=== PATIENT | male | born 1950 | race Caucasian/White ===

== ENCOUNTER 2020-05-27 08:57 | Outpatient (CLI) | payer OTHER, SELFPAY ==
--- NOTE | ~2020-05-27 | US_ITS ---
EXAMINATION: US venous doppler LE RT DATE: 05/27/2020 09:41 INDICATION: Right lower limb pain TECHNIQUE: Guillen scale images without and with compression and Doppler images of the right lower extre mity veins were obtained. COMPARISON: None FINDINGS: The right common femoral vein, profunda femoral vein, femoral vein, popliteal vein, peronea l trunk, posterior tibial veins, and greater saphenous vein are patent. IMPRESSION: 1. Patent right lower extremity veins. No evidence of deep venous thrombosis. Reviewed, dictated and finalized at location B.
== END 2020-05-27 08:58 | disposition home or self-care (01) ==
LOC: ANHIMG 09:04
PROVIDERS: PCP Physician Assistant; Visit Provider Physician Assistant
DX: M79.661 Pain in right lower leg (principal)
CPT/HCPCS: 93971

== ENCOUNTER → 2020-10-07 14:34 | Outpatient (CLI) | payer OTHER, SELFPAY ==
--- NOTE | ~2020-10-07 | XR_ITS ---
EXAMINATION: XR femur RT min 2V DATE: 10/07/2020 14:58 INDICATION: Sciatica to the right lower limb. TECHNIQUE: Overlapping proximal and distal, AP and lateral views of the right femur were obtained. COMPARISON: None FINDINGS: No acute fracture. Old healed mid diaphyseal fracture of the right femur with antegrade intramedullar y cielo fixation. Alignment remains essentially anatomic. Mild to moderate osteoarthritis at the right hip. Prominent heterotopic ossification at the tip of the greater trochanter. IMPRESSION: 1. Internally fixed old healed mid right femoral fracture in essentially anatomic alignment. No acute osseous abnormality. 2. Mild to moderate right hip osteoarthritis. Reviewed, dictated and finalized at location B. IMPRESSION: 1. Internally fixed old healed mid right femoral fracture in essentially anatom ic alignment. No acute osseous abnormality. 2. Mild to moderate right hip osteoarthritis.
--- NOTE | ~2020-10-07 | XR_ITS ---
XR lumbar spine 2-3V DATE: 10/07/2020 14:57 INDICATION: Right sciatica TECHNIQUE: AP, lateral, coned lateral lumbosacral views COMPARISON: None FINDINGS: There is osteopenia. There is degenerative spurring of the thoracic and lumbar spine. There is moderate degenerative disc disease of the lumbar spine, sparing L5-S1. No fracture or bone destruction or spondylolisthesis. The lumbar pedicles are intact. The sacroiliac joints are intact. Bilateral hip osteoarthritis. 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
== END ==
PROVIDERS: PCP Physician Assistant; Visit Provider Physician Assistant
DX: M54.31 Sciatica, right side (principal); M16.0 Bilateral primary osteoarthritis of hip; M51.36 Other intervertebral disc degeneration, lumbar region
CPT/HCPCS: 72100; 73552

== ENCOUNTER 2024-07-23 09:24 | Outpatient (CLI) | payer OTHER, SELFPAY ==
--- NOTE | 2024-07-23 | ECHO_ITS ---
Patient Info Name: Cody Johnston Age: 73 years : 1950 Gender: Male Ht: 64 in Wt: 195 lbs BSA: 2.03 m2 HR: 55 bpm BP: 158 / 95 mmHg Technical Quality: Good Exam Date: 07/23/2024 9:43 AM Patient Status: O Admit Date: 07/23/2024 Exam Type: CA echo doppler color flow Complete two-dimensional, color flow and Doppler transthoracic echocardiogram is performed. Technical Support Director: Kathy Mejía Attending Provider: Susana Krueger Summary 1. Left ventricular chamber dimension is normal. 2. Left ventricular systolic function is normal, estimated at 65-70. 3. There is mildly increased left ventricular wall thickness. 4. The left ventricular diastolic function is grade I diastolic dysfunction. 5. Right ventricular systolic function is normal. 6. No significant valvular disease. Left Ventricle Left ventricular chamber dimension is normal. Left ventricular systolic function is normal, estimated at 65-70. There is mildly increased left ventricular wall thickness. The left ventricular diastolic function is grade I diastolic dysfunction. Right Ventricle Right ventricular chamber dimension is normal. Right ventricular systolic function is normal. Left Atria Left atrial chamber dimension is normal. Right Atria Right atrial chamber dimension is normal. Atrial Septum Intact interatrial septum visualized by color flow imaging. Aortic Valve The aortic valve is trileaflet. There is no aortic valve stenosis. There is trace aortic valve regurgitation. Pulmonic Valve The pulmonic valve is not well visualized. There is trace pulmonic regurgitation. Mitral Valve There is trace mitral valve regurgitation. Tricuspid Valve There is trace tricuspid valve regurgitation. Pericardium/Pleural The pericardium appears epicardial fat pad. There is no pericardial effusion. Inferior Vena Cava Normal inferior vena cava with >50% collapse upon inspiration consistent with normal right atrial pressure, 3 mmHg. Aorta The aortic root size at the sinus of Valsalva is normal. Left Ventricular Outflow Tract Name Value Normal LVOT 2D LVOT Diameter 2.0 cm LVOT Doppler LVOT Peak Velocity 143 cm/s LVOT Peak Gradient 8 mmHg LVOT Mean Gradient 4 mmHg LVOT VTI 31 cm LVOT VTI/AV VTI Ratio 0.9 LVOT Stroke Volume 98 ml LVOT CO 5.6 l/min LVOT CI 2.8 l/min/m2 Pulmonic Valve Name Value Normal RVOT Doppler RVOT Peak Velocity 83 cm/s RVOT Peak Gradient 2 mmHg PV Doppler PV Peak Velocity 108 cm/s PV Peak Gradient 4 mmHg PV Mean Gradient 2 mmHg Mitral Valve Name Value Normal MV Diastolic Function MV E Peak Velocity 91 cm/s MV A Peak Velocity 89 cm/s MV E/A 1.0 MV Decel Time (PW) 233 ms MV Annular TDI MV E/e' (Septal) 12.1 MV E/e' (Lateral) 10.7 MV E/e' (Average) 11.4 Tricuspid Valve Name Value Normal TV Regurgitation Doppler TR Peak Velocity 267 cm/s TR Peak Gradient 28 mmHg Estimated PAP/RSVP RA Pressure 3 mmHg <=5 PA Systolic Pressure 31 mmHg <36 RV Systolic Pressure 31 mmHg <36 Aortic Valve Name Value Normal AV Doppler AV Peak Velocity 153 cm/s AV Peak Gradient 9 mmHg AV Mean Gradient 5 mmHg AV VTI 33 cm AV Area (Cont Eq VTI) 2.9 cm2 >=3.0 AV Area (Cont Eq Pedro) 3.0 cm2 AV DI (Pedro) 0.93 AV Regurgitation 2D LVOT Area 3.2 cm2 Ventricles Name Value Normal LV Dimensions 2D/MM IVS Diastolic Thickness (2D) 1.0 cm 0.6-1.0 LVID Diastole (2D) 4.3 cm 4.2-5.8 LVIW Diastolic Thickness (2D) 1.1 cm 0.6-1.0 LVID Systole (2D) 2.8 cm 2.5-4.0 LVOT Diameter 2.0 cm LV Mass (2D Cubed) 158.21 g 88.00-224.00 LV Mass Index (2D Cubed) 78 g/m2 49-115 Relative Wall Thickness (2D) 0.51 <=0.42 LV Fractional Shortening/Ejection Fraction 2D/MM LV Fractional Shortening (2D) 35 % 25-43 LV EF (2D Teichholz) 65 % LV Diastolic Volume (4C MOD) 133 ml LV EF (4C MOD) 59 % LV Diastolic Volume (2C MOD) 131 ml LV EF (2C MOD) 63 % LV Diastolic Volume (BP MOD) 138 ml 62-150 LV Diastolic Volume Index (BP MOD) 68 ml/m2 34-74 LV Systolic Volume (BP MOD) 54 ml 21-61 LV Systolic Volume Index (BP MOD) 26 ml/m2 11-31 LV EF (BP MOD) 61 % 52-72 LV Diastolic Length (4C) 9.2 cm LV Systolic Length (4C) 7.9 cm LV Stroke Volume (4C MOD) 79 ml Atria Name Value Normal LA Dimensions LA Volume (4C A-L) 62 ml LA Volume (BP A-L) 61 ml Report Signatures
--- OUTSIDE RECORDS SUMMARY | 2024-07-23 10:02 | XMS_ITS | Encounter Summary ---
Author Organization [facility] Healthcare Address [address] [place] [address] Care Team Providers Care Faculty I On Call Medical Assistant Name Role Phone Susana Krueger Primary Care Provider [phone] Reason for Visit * Auth/Cert (Routine) Specialty Diagnoses / Procedures Referred By Amee lee Referred To Contact Diagnoses Nuclear sclerotic cataract of right eye Nuclear sclerotic cataract of right eye [H25.11] Procedures IA XCAPSL CTRC RMVL INSJ IO LENS PROSTH CPLX WO ECP IA XCAPSL CTRC RMVL INSJ IO LENS PROSTH W/O ECP EXTRACTION CATARACT WITH LENS IMPLANT. Referral ID Status Reason Start Date Expiration Date Visits Re quested Visits Authorized [id number] 1 1 Encounter Details Date Type Department Care Team (Late st Contact Info) Description 07/22/2024 8:20 AM CDT Anesthesia Event [facility] Operating Room [address] [place] [address] Donald Butts MD [address] [facility] [id number] [place] [address] Dorie Currie NP [address] [place] [address] Anesthesia Record Procedure Summary Procedure Name Responsible Anesthesiologist Anesthesia Start Time Anesthesia Stop Time EXTRACTION CATARACT WITH LENS IMPLANT. (Right: Eye) Donald Butts MD 07/22/24 0820 07/22/24 0852 Events Date Time Event Comment 07/22/2024 0758 AN Equip Check 0811 0820 An Start 0822 In Room 0823 An Start Data 0825 Start Supplemental O2 0826 An Induction The patient was reevaluated immediately before moderate or deep sedation use and before anesthesia induction. 0827 Anesthesia Ready 0830 Proc Start 0830 Incision Start 0844 Proc Fin 0847 Out of Room 0847 an stop data 0852 Handoff to RN I completed my handoff to the receiving nurse during which we: 1. Patient identified 2. Responsible provider identified 3. Pertinent medical history reviewed 4. Procedure type and surgical course discussed 5. Intraoperative anesthetic management and any significant issues discussed 6. Expectations and concerns for postop period discussed 7. Questions solicited from receiving nurse 8. Patient disposition at the time of handoff: No value filed. 0852 An Stop Meds Name Total midazolam 2 mg/2 mL 2 mg fentaNYL PF 50 mcg Carrier Fluids for Secondary Infusion - 0.9% Sodium Chloride 0 mL lidocaine (PF) (XYLOCAINE) 10 mg/mL (1 % ) preservative free injection 2-10 mg 0 mL sodium chloride 0.9% flush 0.5-20 mL 10 mL sodium chloride 0.9% flush 0.5-20 mL 0 m L sodium chloride 0.9% flush 0.5-20 mL 0 m L sodium chloride 0.9% flush 0.5-20 mL 0 m L * Agents Name O2% N2O O2 N2O Air * Blood No blood administrations on file. Lines, Drains, and Airways Type Details Placement Removal Wound 07/22/24; Incision; Eye; Right 07/22/24 0000 by Beverly Javier RN Peripheral IV Placement Date: 11/07; Placement Time: 07; Catheter Size: 22 G; Orientation: Anterior, Left; Location: Forearm; Site Prep: Chlorhexidine; Technique: Anatomical landmarks; Inserted by: sophia Em RN; Insertion Attempts: 1; Patient Tolerance: Tolerated well; Removal Date: 07/22/24; Removal Time: 909; Removal Reason: Discharge 07/22/24 0701 by Sophia Em RN 07/22/24 0910 by Marina Ponce RN documented in this encounter Social History Tobacco Use Types Packs/Day Years Used Date Smoking Tobacco: Never Smokeless Tobacco: Never AUDIT-C Answer Date Recorded Q1: How often do you have a drink containing alcohol? 4 or more times a week 07/22/2024 Q2: How many drinks containi ng alcohol do you have on a typical day when you are drinking? 1 or 2 Q3: How often do you have si x or more drinks on one occasion? Never 07/22/2024 PHQ-2 Answer Date Recorded PHQ-2 Total Score (If total score is 3 or more points, staff should administer the PHQ-9) 0 06/11/2024 Personal Safety Answer Date Recorded Have you ever been in or are you currently in a harmful physical or emotional relationship or is someone making you feel afraid or unsafe? 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 4 or more times a week 07/22/2024 6:48 AM Sophia Houston RN Q2: How many drinks containing alcohol do you have on a typical day when you are drinking? 1 or 2 07/22/2024 6:48 AM Sophia Houston R N Q3: How often do you have six or more drinks on one occasion? Never 07/22/2024 6:48 AM Sophia Houston R N documented as of this encounter OR Notes * Anesthesia Postprocedure Evaluation - Donald Butts MD - 07/22/2024 9:11 AM CDT Patient: Cody Johnston Procedure Summary Date: 07/22/24 Room / Location: [facility] 4 / [facility] Anesthesia Start: 0820 Anesthesia Stop: 851 Procedure: EXTRACTION CATARACT WITH LENS IMPLANT. (Right: Eye) Diagnosis: Nuclear sclerotic cataract of right eye (Nuclear sclerotic cataract of right eye [H25.11]) Surgeons: Jordan Mcadams MD Responsible Provider: Donald Butts MD Anesthesia Type: MAC ASA Status: 2 Anesthesia Type: MAC Last vitals BP 145/89 Pulse 75 Temp 36.7 ??C (98.1 ??F) (Temporal) Resp 24 SpO2 94% Anesthesia Post Evaluation Patient location during evaluation: PACU Patient participation: complete - patient participated Level of consciousness: fully awake Pain management: satisfactory to patient Airway patency: adequate and patent Cardiovascular status: acceptable and hemodynamically stable Respiratory status: acceptable and room air Hydration status: acceptable Pt is: normothermic Nausea/Vomiting status: none No notable events documented. * Anesthesia Preprocedure Evaluation - Donald Butts MD - 07/09/2024 4:17 PM CDT Images from the original note were not included. Center for Preoperative Assessment and Planning Preoperative Evaluation Record Evaluation type/location: [facility] from [facility] Date: 07/09/24 Anesthesia Evaluation Cody Johnston is a 73 y.o. male EXTRACTION CATARACT WITH LENS IMPLANT. (Right: Eye) Pre-Op Diagnosis Codes: * Nuclear sclerotic cataract of right eye [H25.11] HISTORY HPI Cody Johnston is a 73 year old male being evaluated prior to right cataract extraction and lens implant. PMH: HTN, hypothyroidism Past Medical History Information obtained from: patient and chart. Information obtained during: Telephone Visit NOTE: This note represents a preoperative evaluation initiated via virtual (video or telephone) interview. NO PHYSICAL EXAM was performed at the time of initial assessment. A physical exam may be added to this note and documented below. Neurological Pertinent negatives: CVA/stroke and TIA Cardiovascular + Hypertension Typical systolic BP - 140 Typical diastolic BP - 80 Pertinent negatives: CAD ; [place] ; valvular heart disease; atrial fibrillation; pacemaker/ICD and negative for CHF Respiratory Pertinent negatives: COPD; asthma; sleep apnea (LUCY); pulmonary hypertension; no O2 use outside thehospital; non-smoker and no tracheostomy Hepatic / Heme Pertinent negatives: liver disease Renal / Pertinent negatives: renal disease and dialysis Endocrine / Other + Thyroid disease (on synthroid) - hypothyroidism + Obesity (BMI >30) (BMI 32.79) + Infectious disease (apx 2 months ago COVID) - URI. Pertinent negatives: diabetes mellitus Functional Capacity Functional capacity: 4-6 METs Comments: Pt states that he is very active, goes to gym apx 3-4 times per week, walks regularly and goes linedancing regularly. Denies any SOB or chest pain. Review of Systems Pertinent negatives: wheezing; SOB; recent cold/flu; fever; chest pain; orthopnea and dysphagia Comments: Denies symptoms of UTI PAT Summary and Plans Cardiac risk classification of planned procedure: low cardiac risk. Preoperative assessment status: complete. Additional comments: Cody Johnston is a 73 y.o. male who is being evaluated prior to undergoing alow cardiac risk surgery. Revised Cardiac Risk Index factors are (none) for a total RCRI of 0 out of 6. Functional capacity is 4-6 METs. Obstructive sleep apnea (LUCY) screening status is STOP-BANG incomplete but suspected to be 0-2 suggesting low risk for LUCY. Neck circumference pending.. This assessment was performed via telephone. Therefore the physical exam has been deferred to the day of surgery team. The patient was provided with preoperative instructions for their medications. Patient instructions were provided by telephone and electronically sent via [employer]. Patient verbalized understanding of instructions. Blood bank needs for day of procedure: No type and screen needed Pending labs/tests include: None Tpap process complete Preoperative evaluation performed by Dorie Currie NP on 07/09/24 at 4:29 PM . Patient Active Problem List Diagnosis Date Noted Nuclear sclerotic cataract of right eye 06/24/2024 Annual physical exam 06/11/2024 SOB (shortness of breath) 06/11/2024 Medicare annual wellness visit, subsequent 11/25/2023 Need for influenza vaccination 11/25/2023 Fatigue 11/25/2023 Ocular hypertension of left eye 04/06/2023 Obesity (BMI 30-39.9) 04/13/2022 BMI 33.0-33.9,adult 04/13/2022 Nuclear sclerotic cataract of both eyes 03/25/2022 PVD (posterior vitreous detachment), bilateral 03/25/2022 History of COVID-19 11/22/2021 Acquired hypothyroidism 05/03/2020 Mixed hyperlipidemia 04/08/2020 Essential hypertension 04/08/2020 Rosacea 04/08/2020 Past Medical History: Diagnosis Date Hypertension Past Surgical History: Procedure Laterality Date COLONOSCOPY x2 FEMUR FRACTURE SURGERY Right WISDOM TOOTH EXTRACTION No Known Allergies Med List Status: Nurse Complete Set By: Asia Day RN at 07/05/2024 2:05 PM Taking? Last Dose Start Date End Date Provider amLODIPine (NORVASC) 5 mg tablet 07/05/2024 03/25/24 09/21/24 Susana Krueger PA TAKE 1 TABLET (5 MG TOTAL) BY MOUTH DAILY. Patient taking differently: Take 1 tablet (5 mg total) by mouth every morning hydroCHLOROthiazide 12.5 mg tablet 07/05/2024 06/11/24 -- Susana Krueger PA Take 1 tablet (12.5 mg total) by mouth daily Patient taking differently: Take 1 tablet (12.5 mg total) by mouth every morning ketorolac (ACULAR) 0.5 % ophthalmic solution -- 06/24/24 -- Jordan Mcadams MD Administer 1 drop into the right eye 4 (four) times a day Start 3 days prior to 07-22-24 surgery. 1 drop at breakfast, lunch, dinner, bedtime. Space the separate eye drops out 5 minutes apart. Patient taking differently: Administer 1 drop into the right eye 4 (four) times a day Start 3 days prior to 07-22-24 surgery. 1 drop at breakfast, lunch, dinner, bedtime. Space the separate eye drops out 5 minutes apart. Future med levothyroxine (SYNTHROID) 25 mcg tablet 07/05/2024 05/11/24 -- Susana Krueger PA TAKE 1 TABLET BY MOUTH EVERY DAY Patient taking differently: Take 1 tablet (25 mcg total) by mouth every morning magnesium gluconate 200 mg tablet 07/05/2024 -- -- Provider, MD Cata moxifloxacin (VIGAMOX) 0.5 % ophthalmic solution -- 06/24/24 -- Jordan Mcadams MD Administer 1 drop into the right eye 4 (four) times a day Start 3 days prior to 07-22-24 surgery. 1 drop at breakfast, lunch, dinner, bedtime. Space the separate eye drops out 5 minutes apart. Patient taking differently: Administer 1 drop into the right eye 4 (four) times a day Start 3 days prior to 07-22-24 surgery. 1 drop at breakfast, lunch, dinner, bedtime. Space the separate eye drops out 5 minutes apart. Future med olmesartan (BENICAR) 20 mg tablet 07/05/2024 05/03/24 -- Susana Krueger PA TAKE 1 TABLET BY MOUTH EVERY DAY Patient taking differently: Take 1 tablet (20 mg total) by mouth every morning prednisoLONE acetate (PRED FORTE) 1 % ophthalmic suspension -- 06/24/24 -- Jordan Mcadams MD Administer 1 drop into the right eye 4 (four) times a day Start after surgery 1 drop at breakfast, lunch, dinner, bedtime. Space the separate eye drops out by 5 minutes. Patient taking differently: Administer 1 drop into the right eye 4 (four) times a day Start after surgery 1 drop at breakfast, lunch, dinner, bedtime. Space the separate eye drops out by 5 minutes. Future med rosuvastatin (CRESTOR) 10 mg tablet 07/05/2024 06/11/24 -- Susana Krueger PA Take 1 tablet (10 mg total) by mouth daily Patient taking differently: Take 1 tablet (10 mg total) by mouth every morning No current facility-administered medications for this encounter. Current Outpatient Medications: amLODIPine (NORVASC) 5 mg tablet hydroCHLOROthiazide 12.5 mg tablet ketorolac (ACULAR) 0.5 % ophthalmic solution levothyroxine (SYNTHROID) 25 mcg tablet magnesium gluconate 200 mg tablet moxifloxacin (VIGAMOX) 0.5 % ophthalmic solution olmesartan (BENICAR) 20 mg tablet prednisoLONE acetate (PRED FORTE) 1 % ophthalmic suspension rosuvastatin (CRESTOR) 10 mg tablet Social History Tobacco Use Smoking Status Never Smokeless Tobacco Never Alcohol Use: Not At Risk (07/05/2024) AUDIT-C Frequency of Alcohol Consumption: 4 or more times a week Average Number of Drinks: 1 or 2 Frequency of Binge Drinking: Never Recent Concern: Alcohol Use - Alcohol Misuse (06/11/2024) AUDIT-C Frequency of Alcohol Consumption: 4 or more times a week Average Number of Drinks: 3 or 4 Frequency of Binge Drinking: Less than monthly Substance and Sexual Activity Drug Use Never Family History Problem Relation Age of Onset Cancer Mother COPD Father Hypertension Father Anesthesia problems Neg Hx Malig Hypertension Neg Hx Malig Hyperthermia Neg Hx Pseudochol deficiency Neg Hx There were no vitals filed for this visit. Relevant diagnostics: ECG(s): N/A Echocardiogram(s): N/A Stress test(s): N/A Cardiac catheterization(s): N/A PFT(s): N/A Vascular studies: N/A Other: C spine x ray 12/01/2022 IMPRESSION: 1. Straightening of the cervical lordosis, spondylosis, and degenerative disc disease of the cervical spine. 2. If clinically warranted, MRI of the cervical spine without contrast can be performed for further evaluation. PT: No results found for requested labs within last 30 days. INR: No results found for requested labs within last 30 days. APTT: No results found for requested labs within last 30 days. Hgb A1C: No results found for requested labs within last 30 days. CBC RBC: No results found for requested labs within last 30 days. RDW: No results found for requested labs within last 30 days. MCHC: No results found for requested labs within last 30 days. MCH: No results found for requested labs within last 30 days. MCV: No results found for requested labs within last 30 days. Hct: No results found for requested labs within last 30 days. Hgb: No results found for requested labs within last 30 days. WBC: No results found for requested labs within last 30 days. MPV: No results found for requested labs within last 30 days. Platelets: No results found for requested labs within last 30 days. RDW CV: No results found for requested labs within last 30 days. RDW Sd: No results found for requested labs within last 30 days. BMP Glucose: No results found for requested labs within last 30 days. Calcium: No results found for requested labs within last 30 days. Sodium: No results found for requested labs within last 30 days. Potassium: No results found for requested labs within last 30 days. CO2: No results found for requested labs within last 30 days. Chloride: No results found for requested labs within last 30 days. BUN: No results found for requested labs within last 30 days. Creatinine: No results found for requested labs within last 30 days. Tobias index score: 100 DOS Physical Exam Medical history, medications, and allergies reviewed. Attestation: This PAT evaluation Airway Exam: Mallampati: III Cervical ROM: FROM Cardiovascular Exam: Rate: bradycardia Rhythm: regular Negative for Murmur Pulmonary Exam: LCTA, bilat EENT Exam: trachea midline Dental Exam: Appears intact Skin Exam: Skin is warm and dry. Current state: Patient's current state is cooperative and interactive. Anesthesia Plan ASA 2 My patient is approved for the Anesthesia Controlled Medication protocol when under care of a HAND STONECUTTER Planned anesthesia: MAC Postoperative Plan: No plan for postoperative opioid use. Patient's planned disposition post procedure is Outpatient. Informed Consent: Anesthesia plan and risks discussed with patient and spouse. Consent and Attending signature: I and/or my designee have discussed the anesthesia plan, benefits, possible alternatives, parental presence at time of induction (if indicated), and clinically relevant risks that may include dental injury, unintentional awareness, and/or other complications. The patient and/or parent/legal guardian understand, and agree to proceed. All questions answered. Plan and Consent Comments: Topical/ intra-cameral local anesthetic by surgical team. IV medications to minimal sedation thereafter. documented in this encounter Plan of Treatment Not on file documented as of this encounter Visit Diagnoses Not on filedocumented in this encounter Administered Medications Inactive Administered Medications - up to 3 most recent administrations Medication Order MAR Action Action Date Dose Rate Site fentaNYL (SUBLIMAZE) preservative free injection intravenous, As needed, Starting on Mon07/22/24 at 0826, Anesthesia Intra-op Given 07/22/2024 8:26 AM CDT 50 mcg midazolam (VERSED) 1 mg/mL injection intravenous, Administer over 2 Minutes, As needed, Starting on Mon07/22/24 at 0826, Anesthesia Intra-op Given 07/22/2024 8:26 AM CDT 2 mg sodium chloride 0.9% flush 0.5-20 mL 0.5-20 mL, intra-catheter, Every 8 hours scheduled, First dose on 07/22/24 at 0715, Pre-Op, Flush volume based on line type and size. Given 07/22/2024 8:26 AM CDT 10 mL documented in this encounter Additional Health Concerns Infection Onset Date Last Indicated Resolved Time COVID: Recovered Comment:Added based on recent COVID infection. 05/10/2024 06/11/2024 documented as of this encounter Care Teams Faculty I On Call Medical Assistant Relationship Specialty Start Date End Date Susana Krueger PA [address] [facility] [address] [place] [address] PCP - General Internal Medicine 03/16/20 documented as of this encounter
--- OUTSIDE RECORDS SUMMARY | 2024-07-23 10:02 | XMS_ITS | Clinical Summary ---
Author Organization [facility] [place] [address] [facility] Address [address] [place] [address] Care Team Providers Care Statistical Programmer Analyst Name Role Phone Susana Krueger Primary Care Provider [phone] Allergies No known active allergies Medications amLODIPine (NORVASC) 5 mg tabletIndication s:Essential hypertension TAKE 1 TABLET (5 MG TOTAL) BY MOUTH DAILY. 90 tablet 1 03/25/19 25 025 Active Additional Information Patient taking differently:5 mg oralEvery morning, Indications: hypertension, Informant: Self, Reported on 07/22/2024 olmesartan (BENICAR) 20 mg tablet TAKE 1 TABLET BY MOUTH EVERY DAY 90 tablet 1 05/04/19 25 Active Additional Information Patient taking differently:20 mg oralEvery morning, Indications: hypertension, Informant: Self, Reported on 07/22/2024 levothyroxine (SYNTHROID) 25 mcg tablet TAKE 1 TABLET BY MOUTH EVERY DAY 100 tablet 05/12/19 25 Active Additional Information Patient taking differently:25 mcg oralEvery morning, Indications: hypothyroidism, Informant: Self, Reported on 07/22/2024 magnesium gluconate 200 mg tabletIndication s:hypomagnesemia Take 1 tablet (200 mg total) by mouth 2 (two) times a day Active rosuvastatin (CRESTOR) 10 mg tablet Take 1 tablet (10 mg total) by mouth daily 90 tablet 1 06/12/19 25 Active Additional Information Patient taking differently:10 mg oralEvery morning, Indications: hyperlipidemia, Informant: Self, Reported on 07/22/2024 hydroCHLOROthiaz yung 12.5 mg tablet Take 1 tablet (12.5 mg total) by mouth daily 90 tablet 1 06/12/19 Active Additional Information Patient taking differently:12.5 mg oralEvery morning, Indications: Edema, hypertension, Informant: Self, Reported on 07/22/2024 prednisoLONE acetate (PRED FORTE) 1 % ophthalmic suspension Administer 1 drop into the right eye 4 (four) times a day Start after surgery 1 drop at breakfast, lunch, dinner, bedtime. Space the separate eye drops out by 5 minutes. 10 mL 1 06/25/19 Active moxifloxacin (VIGAMOX) 0.5 % ophthalmic solution Administer 1 drop into the right eye 4 (four) times a day Start 3 days prior to 07-22-24 surgery. 1 drop at breakfast, lunch, dinner, bedtime. Space the separate eye drops out 5 minutes apart. 3 mL 1 06/25/19 25 Active ketorolac (ACULAR) 0.5 % ophthalmic solution Administer 1 drop into the right eye 4 (four) times a day Start 3 days prior to 07-22-24 surgery. 1 drop at breakfast, lunch, dinner, bedtime. Space the separate eye drops out 5 minutes apart. 5 mL 1 06/25/19 Active benzonatate (TESSALON) 200 mg capsuleIndicatio ns:COVID-19 Take 1 capsule (200 mg total) by mouth 3 (three) times a day as needed for cough keep tessalon out of reach of children, especially children under the age of 10, due to possible serious risk such as if ingested by children under the age of 10. 30 capsule 05/01/19 025 Discontin ued(Thera py completed ) amoxicillin 500 mg capsule Take 1 tablet/capsule (500 mg total) by mouth 3 (three) times a day 05/21/19 025 Discontin ued(Thera py completed ) Active Problems Problem Noted Date Diagnosed Date Combined forms of age-related cataract of right eye 07/22/2024 Nuclear sclerotic cataract of right eye 06/25/19 Annual physical exam 06/11/2024 SOB (shortness of breath) 06/11/2024 Medicare annual wellness visit, subsequent 11/24 Assessment & Plan (11/25/2023 8:39 PM CDT): Encouraged healthy lifestyle, good nutrition and exercise. Encouraged Calcium and Vitamin D and weight bearing exercise for bone health. Reviewed immunizations Reviewed age appropirate screenings. Need for influenza vaccination 11/25/2023 Assessment & Plan (11/25/2023 8:39 PM CDT): Flu vaccine updated in the office today Fatigue 11/25/2023 Assessment & Plan (11/25/2023 8:39 PM CDT): Probably multifactorial. Check labs and followup to re-evaluate Ocular hypertension of left eye 04/06/2023 Assessment & Plan (04/06/2023 1:31 PM OFFSET PRESS OPERATOR HELPER): Borderline iop OS. Healthy appearing optic nerve head. F/u annually. Obesity (BMI 30-39.9) 04/13/2022 Assessment & Plan (06/11/2024 8:12 AM CDT): Discussed the patient's BMI. The BMI is above average. BMI management plan is completed. BMI Follow-up includes: nutrition counseling, exercise counseling and education provided. Assessment & Plan (11/25/2023 8:37 PM CDT): Discussed the patient's BMI. The BMI is above average. BMI management plan is completed. BMI Follow-up includes: nutrition counseling, exercise counseling and education provided. Assessment & Plan (06/10/2023 7:25 PM CDT): Discussed the patient's BMI. The BMI is above average. BMI management plan is completed. BMI Follow-up includes: nutrition counseling, exercise counseling and education provided. Assessment & Plan (12/11/2022 8:33 PM CDT): Discussed the patient's BMI. The BMI is above average. BMI management plan is completed. BMI Follow-up includes: nutrition counseling, exercise counseling and education provided. Assessment & Plan (04/13/2022 7:47 AM OFFSET PRESS OPERATOR HELPER): Discussed the patient's BMI. The BMI is above average. BMI management plan is completed. BMI Follow-up includes: nutrition counseling, exercise counseling and education provided. BMI 33.0-33.9,adult 04/13/2022 Assessment & Plan (06/11/2024 8:12 AM CDT): Discussed the patient's BMI. The BMI is above average. BMI management plan is completed. BMI Follow-up includes: nutrition counseling, exercise counseling and education provided. Assessment & Plan (11/25/2023 8:37 PM CDT): Discussed the patient's BMI. The BMI is above average. BMI management plan is completed. BMI Follow-up includes: nutrition counseling, exercise counseling and education provided. Assessment & Plan (06/06/2023 2:50 PM CDT): Patient educated on importance of losing weight and risk of comorbidities associated with obesity. Encouraged to adopt a diet like the Mediterranean diet that is rich in fruits, vegetables, healthy fats, and protein. Recommended daily exercise. Assessment & Plan (12/11/2022 8:34 PM CDT): Discussed the patient's BMI. The BMI is above average. BMI management plan is completed. BMI Follow-up includes: nutrition counseling, exercise counseling and education provided. Assessment & Plan (04/13/2022 7:47 AM OFFSET PRESS OPERATOR HELPER): Discussed the patient's BMI. The BMI is above average. BMI management plan is completed. BMI Follow-up includes: nutrition counseling, exercise counseling and education provided. Nuclear sclerotic cataract of both eyes 03/25/19 Assessment & Plan (04/11/2024 1:39 PM OFFSET PRESS OPERATOR HELPER): Pt ready to pursue surgery. Natural monovision, OD near. Pt prefers this refractive target. Schedule for pre-op with Dr. Johnson or Dr. Mcadams. Assessment & Plan (06/06/2023 2:51 PM CDT): Managed by Dr. Contreras. Pt elects observation. Pt states he will call optometry to schedule if symptoms worsen. Assessment & Plan (04/06/2023 1:30 PM OFFSET PRESS OPERATOR HELPER): Visually significant. Pt elects observation at present. F/u in 1 year with diagnostic refraction and BAT. Assessment & Plan (03/25/2022 4:06 PM OFFSET PRESS OPERATOR HELPER): Surgery not yet indicated. Natural monovision, OD near. Offered SRx but pt declines. Observe. PVD (posterior vitreous detachment), bilateral 0 03/25/2022 Assessment & Plan (04/11/2024 1:40 PM OFFSET PRESS OPERATOR HELPER): Stable. Observe. Assessment & Plan (04/06/2023 1:31 PM OFFSET PRESS OPERATOR HELPER): The signs and symptoms of retinal detachment were reviewed. Advised urgent evaluation with any onset. Assessment & Plan (03/25/2022 4:06 PM OFFSET PRESS OPERATOR HELPER): The signs and symptoms of retinal detachment were reviewed. Advised urgent evaluation with any onset. History of COVID-19 11/22/2021 Overview (11/22/2021): 11/2021 Assessment & Plan (11/22/2021 6:10 PM CDT): Recovering from COVID. On about day 7 without any significant effects Acquired hypothyroidism 05/03/2020 Assessment & Plan (11/25/2023 8:37 PM CDT): Continue levothyroxine 25 mcg Monitor labs. Assessment & Plan (06/06/2023 2:57 PM CDT): Continue Levothyroxine. Assessment & Plan (12/11/2022 8:34 PM CDT): Continue levothyroxine 25 and monitor labs Assessment & Plan (04/13/2022 8:22 AM OFFSET PRESS OPERATOR HELPER): Continue levothyroxine 25 mcg. Continue monitor labs Assessment & Plan (11/22/2021 6:09 PM CDT): Continue levothyroxine. Monitor labs. Assessment & Plan (07/04/2021 8:31 PM CDT): Continue levothyroxine. Monitor labs. Assessment & Plan (01/11/2021 10:12 PM OFFSET PRESS OPERATOR HELPER): Patient still does not want to start medication. Monitor labs. Assessment & Plan (10/18/2020 8:41 PM CDT): Recheck labs. Pt did not want to start replacement with last draw. Assessment & Plan (05/04/2020 7:37 PM CDT): Discussed TSH results and discussed monitoring vs starting levothyroxine. He prefers to monitor and recheck in a few months. Advised to call if he feels increase in hypothyroid sxs. Mixed hyperlipidemia 04/08/2020 Assessment & Plan (11/25/2023 8:37 PM CDT): Encouraged patient to follow low fat/low chol diet like the Mediterranean diet. Increase good fats in the diet. Increase exercise. Monitor labs as needed. Assessment & Plan (06/06/2023 2:56 PM CDT): Pt elects to not start any sort of lipid medication at this time. Cholesterol and LDL slightly elevated, but not in severe range. Encouraged to adopt a diet like the Mediterranean diet that is rich in fruits, vegetables, healthy fats, and protein. Recommended daily exercise. Assessment & Plan (12/11/2022 8:33 PM CDT): Encouraged patient to follow low fat/low chol diet like the Mediterranean diet. Increase good fats in the diet. Increase exercise. Monitor labs as needed. Assessment & Plan (04/13/2022 8:21 AM OFFSET PRESS OPERATOR HELPER): Encouraged patient to follow low fat/low chol diet like the Mediterranean diet. Increase good fats in the diet. Increase exercise. Monitor labs as needed. Reviewed benefits risks of statins. He does not want to add another medication to his regimen. Assessment & Plan (11/22/2021 6:07 PM CDT): Encouraged patient to follow low fat/low chol diet like the Mediterranean diet. Increase good fats in the diet. Increase exercise. Monitor labs as needed. Assessment & Plan (07/04/2021 8:26 PM CDT): Continue with diet Encouraged patient to follow low fat/low chol diet like the Mediterranean diet. Increase good fats in the diet. Increase exercise. Monitor labs as needed. Continue diet managed Assessment & Plan (01/11/2021 10:12 PM OFFSET PRESS OPERATOR HELPER): Encouraged patient to follow fat/low chol diet like the Mediterranean diet. Increase good fats in the diet. Increase exercise. Monitor labs as needed. Assessment & Plan (10/06/2020 11:27 PM CDT): Encouraged patient to follow fat/low chol diet like the Mediterranean diet. Increase good fats in the diet. Increase exercise. Monitor labs as needed. Assessment & Plan (05/04/2020 7:38 PM CDT): Encouraged patient to follow fat/low chol diet like the Mediterranean diet. Increase good fats in the diet. Increase exercise. Monitor labs as needed. He would like to monitor and work on diet and exercise and recheck labs in 4-6 months. Assessment & Plan (04/08/2020 10:59 AM OFFSET PRESS OPERATOR HELPER): Encouraged patient to follow fat/low chol diet like the Mediterranean diet. Increase good fats in the diet. Increase exercise. Monitor labs as needed. Check labs Essential hypertension 04/08/2020 Assessment & Plan (11/25/2023 8:39 PM CDT): Bp is stable/in acceptable range for any co-morbidities. Encouraged to limit sodium intake and exercise for weight control. Continue amlodipine 5 Olmesartan 20 and hydrochlorothiazide 12.5. He would like to separate the medications. New prescription sent to pharmacy. Assessment & Plan (06/06/2023 2:54 PM CDT): Continue amlodipine 5 mg and olmesartan-HCTZ .5. Assessment & Plan (12/11/2022 8:34 PM CDT): Bp is stable/in acceptable range for any co-morbidities. Encouraged to limit sodium intake and exercise for weight control. Continue [facility] 03/07/11 Assessment & Plan (04/13/2022 8:22 AM OFFSET PRESS OPERATOR HELPER): Bp is stable/in acceptable range for any co-morbidities. Encouraged to limit sodium intake and exercise for weight control. Continue [facility] 07/03/2011 0.5 Assessment & Plan (11/22/2021 6:08 PM CDT): Bp is stable/in acceptable range for any co-morbidities. Encouraged to limit sodium intake and exercise for weight control. Continue [facility] 07/03/11. Assessment & Plan (07/04/2021 8:27 PM CDT): Bp is stable/in acceptable range for any co-morbidities. Encouraged to limit sodium intake and exercise for weight control. Continue [facility] Assessment & Plan (01/11/2021 10:12 PM OFFSET PRESS OPERATOR HELPER): Bp is stable/in acceptable range for any co-morbidities. Encouraged to limit sodium intake and exercise for weight control. Continue [facility] 03/07/11. Assessment & Plan (10/06/2020 11:24 PM CDT): Bp is stable/in acceptable range for any co-morbidities. Encouraged to limit sodium intake and exercise for weight control. Continue [facility] 03/07/11.5 Assessment & Plan (06/10/2020 9:43 PM CDT): Bp is stable/in acceptable range for any co-morbidities. Encouraged to limit sodium intake and exercise for weight control. Continue olmesartan, HCTZ and amlodipine. If desires, [facility] the individual components (which would be the 20/5/12.5. Would then monitor closely as it would be a slightly less dose of the hydrochlorothiazide but probably would still control.) Assessment & Plan (06/07/2020 9:44 PM CDT): BP is still not fully controlled. Continue home certain 20 amlodipine 5 and start hydrochlorothiazide 25 mg 1 daily. Will recheck in a couple of weeks. Assessment & Plan (05/04/2020 7:36 PM CDT): Bp is stable/in acceptable range for any co-morbidities. Encouraged to limit sodium intake and exercise for weight control. Continue olmesartan. Start Amlodipine 5mg daily. Recheck bp in 2-3 weeks. Assessment & Plan (04/08/2020 10:59 AM OFFSET PRESS OPERATOR HELPER): This is a significant, separately identifiable problem that was evaluated and managed on the same day as the wellness exam Bp is elevated range for any co-morbidities. Encouraged to limit sodium intake and exercise for weight control. Increase olmesartan to 20 mg daily (full tablet). Recheck bp in a few weeks. Monitor for sxs of hypotension. Rosacea 04/08/2020 Assessment & Plan (11/25/2023 8:37 PM CDT): Continue Metrogel for the rosacea Assessment & Plan (05/04/2020 7:36 PM CDT): Continue Metrogel Advised may take more time to see resolution/control Assessment & Plan (04/08/2020 11:03 AM OFFSET PRESS OPERATOR HELPER): This is a significant, separately identifiable problem that was evaluated and managed on the same day as the wellness exam Reviewed with patient this appears to be Rosacea-- Will start with metrogel bid and monitor Resolved Problems Problem Noted Date Diagnosed Date Resolved Date Annual physical exam 06/10/202311/12/2 024 Assessment & Plan (06/10/2023 7:23 PM CDT): Reviewed patient's problem list and discussed current medications and lab work. Health maintenance screening and vaccinations discussed. Educated on maintaining a healthy lifestyle. Encounter for Medicare annual wellness exam 06/06/2023 06/06/2023 Rash of face 06/06/2023 11/25/2023 Assessment & Plan (06/10/2023 7:26 PM CDT): This is a significant, separately identifiable problem that was evaluated and managed on the same day as the wellness exam Red rash in malar pattern resembling lupus rash or rosacea. Patient notes it started when he started taking medication for his blood pressure. -IKE ordered -if IKE negative work up rosacea or antihypertensive medication side effects Encounter for Medicare annual wellness exam 06/06/2023 06/06/2023 Encounter for general adult medical examination w/o abnormal findings 06/06/20232023 Assessment & Plan (06/06/2023 3:04 PM CDT): Reviewed patient's problem list and discussed current medications and lab work. Health maintenance screening and vaccinations discussed. Educated on maintaining a healthy lifestyle. Medicare annual wellness visit, subsequent 12/11/2022 06/10/2023 Assessment & Plan (12/11/2022 8:34 PM CDT): Encouraged healthy lifestyle, good nutrition and exercise. Encouraged Calcium and Vitamin D and weight bearing exercise for bone health. Reviewed immunizations. Reviewed age appropirate screenings. Medicare Wellness Documentation is completed within the chart Neck pain 12/11/2022 06/10/2023 Assessment & Plan (12/11/2022 8:35 PM CDT): This is a significant, separately identifiable problem that was evaluated and managed on the same day as the wellness exam Patient has noticed increased neck pain. There is also description of the shoulder. Recommend starting with x-rays. Also recommend starting physical therapy. He is also noticed some tightness in his right hamstring so will put the order on for both. If symptoms persist or and/or do not resolve will need to have further assessment. Patient is in agreement with the plan. May use anti-inflammatories [id number] as needed for any discomfort. Advised heat may also help to the area Left thigh pain 12/11/2022 06/10/2023 Assessment & Plan (12/11/2022 8:36 PM CDT): This is a significant, separately identifiable problem that was evaluated and managed on the same day as the wellness exam Patient has noticed increased neck pain. There is also description of the shoulder. Recommend starting with x-rays. Also recommend starting physical therapy. He is also noticed some tightness in his right hamstring so will put the order on for both. If symptoms persist or and/or do not resolve will need to have further assessment. Patient is in agreement with the plan. May use anti-inflammatories [id number] as needed for any discomfort. Advised heat may also help to the area Prostate cancer screening 12/11/2022 Assessment & Plan (06/06/2023 2:53 PM CDT): Last PSA (2023) wnl 1.81 Assessment & Plan (12/11/2022 8:36 PM CDT): Check PSA Fatigue 12/11/2022 06/10/2023 Assessment & Plan (12/11/2022 8:36 PM CDT): Probably multifactorial. Check labs and followup to re-evaluate Cramps, extremity 04/13/2022 06/10/2023 Assessment & Plan (12/11/2022 8:34 PM CDT): Check labs Assessment & Plan (04/13/2022 8:22 AM OFFSET PRESS OPERATOR HELPER): Patient is noting cramps. If he takes magnesium zinc and calcium supplement [id number] it helps them resolve. Not had a magnesium level checked so will do this with his next draw. Also discussed tonic water. Annual physical exam 04/13/2022 023 Assessment & Plan (04/13/2022 8:22 AM OFFSET PRESS OPERATOR HELPER): Encouraged healthy lifestyle, good nutrition and exercise. Encouraged Calcium and Vitamin D and weight bearing exercise for bone health. Reviewed immunizations Reviewed age appropirate screenings. Medicare annual wellness visit, subsequent 11/22/2021 04/13/2022 Assessment & Plan (11/22/2021 6:09 PM CDT): Encouraged healthy lifestyle, good nutrition and exercise. Encouraged Calcium and Vitamin D and weight bearing exercise for bone health. Reviewed immunizations. Reviewed age appropirate screenings. Medicare Wellness Documentation is completed within the chart Need for 23-polyvalent pneum ococcal polysaccharide vaccine 07/04/2021 11/22/2021 Assessment & Plan (07/04/2021 8:32 PM CDT): Pneumonia 23 given in the office today Annual physical exam 07/04/2021 022 Assessment & Plan (07/04/2021 8:32 PM CDT): Encouraged healthy lifestyle, good nutrition and exercise. Encouraged Calcium and Vitamin D and weight bearing exercise for bone health. Reviewed immunizations Reviewed age appropirate screenings. Obesity (BMI 30-39.9) 01/11/20212022 Assessment & Plan (07/04/2021 8:31 PM CDT): Obesity is unchanged. Discussed the patient's BMI. The BMI is above average. BMI management plan is completed. BMI Follow-up includes: nutrition counseling, exercise counseling and education provided. Assessment & Plan (01/11/2021 11:41 AM OFFSET PRESS OPERATOR HELPER): Obesity is unchanged. Discussed the patient's BMI. The BMI is above average. BMI management plan is completed. BMI Follow-up includes: nutrition counseling, exercise counseling and education provided. BMI 31.0-31.9,adult 01/11/2021 04/14/19 23 Assessment & Plan (07/04/2021 8:32 PM CDT): Obesity is unchanged. Discussed the patient's BMI. The BMI is above average. BMI management plan is completed. BMI Follow-up includes: nutrition counseling, exercise counseling and education provided. Assessment & Plan (01/11/2021 11:41 AM OFFSET PRESS OPERATOR HELPER): Obesity is unchanged. Discussed the patient's BMI. The BMI is above average. BMI management plan is completed. BMI Follow-up includes: nutrition counseling, exercise counseling and education provided. Sciatica of right side 10/18/202006/09 Assessment & Plan (10/18/2020 8:42 PM CDT): This is a significant, separately identifiable problem that was evaluated and managed on the same day as the wellness exam Check xrays of lumbar spine and femur due to history of hardware. Encouraged NSAIDS. Prefers every day dosing so will send Mobic Topical preparations like Lidocaine patches, Biofreeze, ICYHOT etc as needed. Heat, stretching Avoid long periods of sitting/laying. Encouraged PT. Followup if has any problems controlling bowels or bladder or if sxs worsen. Obesity (BMI 30-39.9) 10/07/20202020 Assessment & Plan (10/07/2020 1:15 PM CDT): Obesity is unchanged. Discussed the patient's BMI. The BMI is above average. BMI management plan is completed. BMI Follow-up includes: nutrition counseling, exercise counseling and education provided. BMI 30.0-30.9,adult 10/07/2020 01/12/20 21 Assessment & Plan (10/07/2020 1:15 PM CDT): Obesity is unchanged. Discussed the patient's BMI. The BMI is above average. BMI management plan is completed. BMI Follow-up includes: nutrition counseling, exercise counseling and education provided. Annual physical exam 10/06/2020 Medicare annual wellness visit, initial 10/06/2020 01/11/2021 Assessment & Plan (10/18/2020 8:43 PM CDT): Encouraged healthy lifestyle, good nutrition and exercise. Encouraged Calcium and Vitamin D and weight bearing exercise for bone health. Reviewed immunizations. Reviewed age appropirate screenings. Medicare Wellness Documentation is completed within the chart BMI 30.0-30.9,adult 06/10/2020 10/08/19 Assessment & Plan (06/10/2020 2:16 PM CDT): Obesity is unchanged. Discussed the patient's BMI. The BMI is above average. BMI management plan is completed. BMI Follow-up includes: nutrition counseling, exercise counseling and education provided. Need for vaccination with 13 -polyvalent pneumococcal conjugate vaccine 06/10/2020 Assessment & Plan (06/10/2020 9:43 PM CDT): Updated in office today Right calf pain 05/27/2020 01/11/2021 Assessment & Plan (06/07/2020 9:43 PM CDT): Calf pain could be DVT versus musculoskeletal versus other etiology. Will obtain venous Doppler to rule out DVT. If negative will consider stretching and physical therapy. VERBAL REPORT from Jose A: No DVT. Patient was notified of the negative Venous Doppler. Encouraged stretching/activity and to call if has increased sxs. Obesity (BMI 30-39.9) 05/04/20202020 Assessment & Plan (06/10/2020 2:16 PM CDT): Obesity is unchanged. Discussed the patient's BMI. The BMI is above average. BMI management plan is completed. BMI Follow-up includes: nutrition counseling, exercise counseling and education provided. Assessment & Plan (06/07/2020 9:44 PM CDT): Obesity is unchanged. Discussed the patient's BMI. The BMI is above average. BMI management plan is completed. BMI Follow-up includes: nutrition counseling, exercise counseling and education provided. Assessment & Plan (05/04/2020 7:48 AM CDT): Obesity is unchanged. Discussed the patient's BMI. The BMI is above average. BMI management plan is completed. BMI Follow-up includes: nutrition counseling, exercise counseling and education provided. BMI 31.0-31.9,adult 05/04/2020 06/11/19 Assessment & Plan (06/07/2020 9:44 PM CDT): Obesity is unchanged. Discussed the patient's BMI. The BMI is above average. BMI management plan is completed. BMI Follow-up includes: nutrition counseling, exercise counseling and education provided. Assessment & Plan (05/04/2020 7:48 AM CDT): Obesity is unchanged. Discussed the patient's BMI. The BMI is above average. BMI management plan is completed. BMI Follow-up includes: nutrition counseling, exercise counseling and education provided. BMI 29.0-29.9,adult 04/08/2020 05/05/19 Assessment & Plan (04/08/2020 10:06 AM OFFSET PRESS OPERATOR HELPER): Weight/BMI is in healthy range. Continue healthy lifestyle to maintain. Annual physical exam 04/08/2020 021 Other fatigue 04/08/2020 05/04/2020 Assessment & Plan (04/08/2020 11:00 AM OFFSET PRESS OPERATOR HELPER): Probably multifactorial. Check labs and followup to re-evaluate Medicare annual wellness visit, initial 04/08/2020 04/08/2020 Assessment & Plan (04/08/2020 10:59 AM OFFSET PRESS OPERATOR HELPER): Encouraged healthy lifestyle, good nutrition and exercise. Encouraged Calcium and Vitamin D and weight bearing exercise for bone health. Reviewed immunizations. Reviewed age appropirate screenings. Medicare Wellness Documentation is completed within the chart Otitis of left ear 04/08/2020 Assessment & Plan (05/04/2020 7:34 PM CDT): Resolved Assessment & Plan (04/08/2020 10:57 AM OFFSET PRESS OPERATOR HELPER): This is a significant, separately identifiable problem that was evaluated and managed on the same day as the wellness exam TM is dull and there is fluid in the ear. External vs media. He thinks he was on drops before. Will start with Cefdinir and recheck in 2 weeks. If persistent, may need drops vs referral to ENT Annual physical exam 04/08/2020 021 Assessment & Plan (04/08/2020 11:04 AM OFFSET PRESS OPERATOR HELPER): Encouraged healthy lifestyle, good nutrition and exercise. Encouraged Calcium and Vitamin D and weight bearing exercise for bone health. Reviewed immunizations Reviewed age appropirate screenings. Will hold off on pneumonia vaccine due to him being in the middle of his COVID series. Encounters Date Type Department Care Team Description 07/22/2024 8:45 AM CDT - 07/22/2024 9:30 AM CDT Surgery [facility] [facility] Operating Room [address] [place] [phone] Jordan Mcadams MD EXTRACTION CATARACT WITH LENS IMPLANT. 07/22/2024 8:20 AM CDT Anesthesia Event [facility] Operating Room [address] [place] [address] [phone] Donald Butts MD Hearn, Alexandra Marie, NP 07/22/2024 6:31 AM CDT - 07/22/2024 9:16 AM CDT Hospital Encounter [facility] Operating Room [address] [place] [phone] Jordan Mcadams MD Combined forms of age-related cataract of right eye [H25.811] (Primary Dx) Discharge Disposition: Discharge to home or self care 07/19/2024 Telephone [facility] Ophthalmology [address] [place] [address] [address] [place] [phone] Jordan Mcadams MD Sx arrival 06/24/2024 Telephone [facility] Ophthalmology [address] [place] [address] [place] [phone] Jordan Mcadams MD [facility] sx 06/12/2024 Telephone [facility] [address] [place] [address] [address] [place] [phone] Susana Krueger PA Medical Question/Miscellane ous 06/11/2024 1:00 PM CDT Office Visit [facility] Ophthalmology [address] [place] [address] [address] [place] [address] Jordan Mcadams MD Combined form of age-related cataract, both eyes (Primary Dx) 06/11/2024 9:00 AM CDT Office Visit [address] [place] [phone] Susana Krueger PA Annual physical exam (Primary Dx); Mixed hyperlipidemia; SOB (shortness of breath); Essential hypertension; Acquired hypothyroidism; Rosacea; BMI 33.0-33.9,adult; Obesity (BMI 30-39.9) 04/30/2024 11:45 AM CDT Office Visit [facility] Care at [address] [phone] Edson Delgadillo NP COVID-19 (Primary Dx) 04/30/2024 Nurse Triage [address] [place] [phone] Susana Krueger PA from Last 3 Months Immunizations Immunization Administration Dates Next Due Influenza, Quadrivalent, Hig h Dose, Preservative Free, Intrr 12/09/2021,10/31/2019 Influenza, Trivalent, High D ose, Split, Preservative Free, Intramuscular 11/14/2023 Influenza, Unspecified 11/10/2022,12/29/2020 Moderna SARS-CoV-2 Monovalen t Vaccination (12+ YRS) 01/05/2021,05/04/2020,04/02/2020 Pfizer SARS-CoV-2 Monovalent Vaccination (12+ Yrs) PURPLE 11/30/2023,11/10/2022,01/21/2022 Pneumococcal Conjugate PCV 13 06/10/2020 Pneumococcal Polysaccharide PPV23 06/29/2021 ZOSTER Recombinant 01/28/2020,11/29/2019 Surgical History Surgery Date Site/Laterality Comments WISDOM TOOTH EXTRACTION FEMUR FRACTURE SURGERY Right COLONOSCOPY x2 CATARACT EXTRACTION EXTRACAPSULAR W/ INTRAOCULAR LENS IMPLANTATION 07/22/2024 Eye/Right Procedure: EXTRACTION CATARACT WITH LENS IMPLANT.; Surgeon: Jordan Mcadams MD; Location: [facility] OPERATING ROOM; Service: Ophthalmology; Laterality: Right; Medical devices from this surgery are in the Medical Devices section. Medical History Medical History Date Comments Hypertension Family History Medical History Relation Name Comments COPD Father Hypertension Father Cancer Mother Anesthesia problems Neg Hx Malig Hypertension Neg Hx Malig Hyperthermia Neg Hx Pseudochol deficiency Neg Hx Relation Name Status Comments Father Mother Social History Tobacco Use Types Packs/Day Years Used Date Smoking Tobacco: Never Smokeless Tobacco: Never Tobacco Cessation:Counseling Given: Not Answered AUDIT-C Answer Date Recorded Q1: How often [...] on file Legal Sex Male 11:04 AM OFFSET PRESS OPERATOR HELPER Gender Identity Not on file Sexual Orientation Not on file Obstetrics History Last Filed Vital Signs Vital Sign Reading Time Taken Comments Blood Pressure 145/89 07/22/2024 9:10 AM CDT Pulse 75 07/22/2024 9:10 AM CDT Temperature 36.7 C (98.1 F) 07/22/2024 8:49 AM CDT Respiratory Rate 24 07/22/2024 9:10 AM CDT Oxygen Saturation 94% 07/22/2024 9:10 AM CDT Inhaled Oxygen Concentration - - Weight 89.6 kg (197 lb 8 oz) 07/22/2024 7:06 AM CDT Height 163.8 cm (5' 4.5) 07/22/2024 7:06 AM CDT Body Mass Index 33.38 07/22/2024 7:06 AM CDT Plan of Treatment Health Maintenance Due Date Last Done Comments Hepatitis C Screening 1950 DTaP/Tdap/Td Vaccine (1 - Tdap) 1961 Hepatitis B Screening 1968 Covid-19 Vaccine (2023-2 5 season) 2024 11/30/2023, 11/10/2022, 11/10/2022, Additional history exists Depression Screening 06/11/2025 06/11/2024, 11/14/2023, 06/06/2023, Additional history exists Well Visit 65+ 06/11/2025 06/11/2024, 1002/2023, 06/06/2023, Additional history exists Fall Risk Assessment 07/22/2025 07/22/2024, 06/11/2024, 11/14/2023, Additional history exists Colon Cancer Screening-Colonoscopy 08/01/2026 08/01/2016 Zoster Vaccine Completed 01/28/2020, 11/29/2019 Pneumococcal vaccine 65+ Completed 06/29/2021, 05/15 Prostate Cancer Screening-PSA Discontinued 04/18/2023, 04/23/2020 Influenza Vaccine Completed 11/14/2023, , 12/09/2021, Additional history exists Medical Devices Implanted Type Area Confidential Investigator Device Identifier Shelf Expiration Date Model / Serial / Lot [employer]amundo Lens [employer] Eyhance Iol [id number] - [id number] - [id number] Implanted:Qty: 1 on 07/22/2024 by Jordan Mcadams MD at [facility] Lens Right: Eye [employer] [id number] 03/19/2027 [id number] / [id number] / Procedures Procedure Name Priority Date/Time Associated Diagnosis Comments EXTRACTION CATARACT WITH LENS IMPLANT. 07/22/2024 8:22 AM CDT Nuclear sclerotic cataract of right eye Special Needs [place] IOL BIOMETRY - OU - BOTH EYES Routine 06/11/2024 1:00 PM CDT Combined form of age-related cataract, both eyes POC INFLUENZA A/B, COVID-19 ANTIGEN Routine 04/30/2024 11:52 AM CDT COVID-19 PSA SCREEN Routine 04/18/2023 7:02 AM OFFSET PRESS OPERATOR HELPER Prostate cancer screening HM COLONOSCOPY Routine 08/01/2016 from Last 3 Months or Most Recently Relevant to Health Maintenance Results * IOL Biometry - OU - Both Eyes (06/11/2024 1:00 PM CDT) Anatomical Region Laterality Modality Head Ophthalmic Axial Measurements Narrative 06/14/2024 3:56 PM CDT Helpful for surgery planning us Jordan Mcadams MD OPHTH ULTRASOUND Final R esult * (ABNORMAL) POC Influenza A/B, COVID-19 antigen (04/30/2024 11:52 AM CDT) Influenza A Ag, POC Negative Negative [facility] Influenza B Ag, POC Negative Negative [facility] COVID-19 Ag POC Positive(A) Presumptive Negative, Invalid [facility] Nasal 04/30/2024 11:5 2 AM CDT Edson Delgadillo NP POINT OF CARE TEST ORDERABLES F inal Result [facility] [address] [place] [address] * PSA screen (04/18/2023 7:02 AM OFFSET PRESS OPERATOR HELPER) PSA 1.81 < OR = 4.00 ng/mL [facility] Comment: The total PSA value from this assay system is standardized against the WHO standard. The test result will be approximately 20% lower when compared to the equimolar-standardized total PSA (Aniceto Vijay). Comparison of serial PSA results should be interpreted with this fact in mind. This test was performed using the Siemens chemiluminescent method. Values obtained from different assay methods cannot be used interchangeably. PSA levels, regardless of value, should not be interpreted as absolute evidence of the presence or absence of disease. Blood 04/18/2023 7:02 AM OFFSET PRESS OPERATOR HELPER 04/18/2023 7:03 AM OFFSET PRESS OPERATOR HELPER Narrative [facility] - 04/19/2023 5:21 AM OFFSET PRESS OPERATOR HELPER FASTING:YES FASTING: YES us Susana DE LEÓN LAB BLOOD ORDERABLES Final Result [facility] [address] [phone] * (ABNORMAL) HM COLONOSCOPY (08/01/2016) us Leonardo Carrington MD HEALTH MAINTENANCE Edited Result - Final from Last 3 Months or Most Recently Relevant to Health Maintenance Additional Health Concerns Infection Onset Date Last Indicated COVID: Recovered Comment:Added based on recent COVID infection. 05/10/2024 025 Insurance [employer] PPO [employer] PPO Member Subscriber Plan / Payer (Ef fective 2022-Present) Name:Cody Johnston Relation to Subscriber:Self Name:Cody Johnston Payer ID:[id number] (NAIC) Type:MEDICARE RISK OTHER Address: [place] [id number] Advance Directives For more information, please contact: [phone] Documents on File Type Date Recorded Patient Speech Correction Consultant Expl anation ADVANCE DIRECTIVE 05/07/2020 4:54 PM POLST Care Teams Statistical Programmer Analyst Relationship Specialty Start Date End Date Susana Krueger PA [address] [facility] [address] [place] [address] PCP - General Internal Medicine 03/16/20
--- OUTSIDE RECORDS SUMMARY | 2024-07-23 10:02 | XMS_ITS | CONTINUITY OF CARE DOCUMENT ---
Author Name kat stephens Address Unknown Organization [facility] Address [address] [address] [address] [place] [address] Phone [phone] Care Team Providers Care Two Needle Machine Operator Name Role Phone Fabrice CUMMINGS, Audrey Unavailable INSURANCE PROVIDERS Payer name Policy type / Coverage type Irving red republican ID [facility] [employer] insurance [employer] [id number]
--- OUTSIDE RECORDS SUMMARY | 2024-07-23 10:02 | XMS_ITS | Referral Summary ---
Author Organization [facility] [address] [facility] Address [address] [address] [place] [address] Care Team Providers Care Animal Chiropractor Name Role Phone Susana Krueger Primary Care Provider [phone]- [phone] Encounters Date Type Department Care Team Description 07/22/2024 8:45 AM CDT - 07/22/2024 9:30 AM CDT Surgery [facility] Operating Room [address] [place] [phone] Jordan Mcadams MD EXTRACTION CATARACT WITH LENS IMPLANT. 07/22/2024 8:20 AM CDT Anesthesia Event [facility] Operating [facility] [address] [facility] [place] [phone] Donald Butts MD Hearn, Alexandra Marie, NP 07/22/2024 6:31 AM CDT - 07/22/2024 9:16 AM CDT Hospital Encounter [facility] Operating [facility] [address] [place] [phone] Jordan Mcadams MD Combined forms of age-related cataract of right eye [H25.811] (Primary Dx) Discharge Disposition: Discharge to home or self care 07/19/2024 Telephone [facility] [address] [place] [address] [address] [place] [address] Jordan Mcadams MD Sx arrival 06/24/2024 Telephone [facility] [address] [place] [phone] Jordan Mcadams MD [facility] sx 06/12/[address] [place] [phone] Susana Krueger PA Medical Question/Miscellane ous 06/11/2024 1:00 PM CDT Office Visit [facility] [address] [place] [phone] Jordan Mcadams MD Combined form of age-related cataract, both eyes (Primary Dx) 06/11/2024 9:00 AM CDT Office Visit [address] [phone] Susana Krueger PA Annual physical exam (Primary Dx); Mixed hyperlipidemia; SOB (shortness of breath); Essential hypertension; Acquired hypothyroidism; Rosacea; BMI 33.0-33.9,adult; Obesity (BMI 30-39.9) 04/30/2024 11:45 AM CDT Office Visit [facility] [address] [phone] Edson Delgadillo NP COVID-19 (Primary Dx) 04/30/2024 Nurse Triage [address] [place] [phone] Susana Krueger PA from Last 3 Months Allergies No known active allergies Medications amLODIPine [...] BY MOUTH EVERY DAY 100 tablet 05/12/19 Active Additional Information Patient taking differently:25 mcg oralEvery morning, Indications: hypothyroidism, Informant: Self, Reported on 07/22/2024 magnesium gluconate 200 mg tabletIndication s:hypomagnesemia Take 1 tablet (200 mg total) by mouth 2 (two) times a day Active rosuvastatin (CRESTOR) 10 mg tablet Take 1 tablet (10 mg total) by mouth daily 90 tablet 1 06/12/19 Active Additional Information Patient taking differently:10 mg [...] by 5 minutes. 10 mL 1 06/25/19 25 Active moxifloxacin (VIGAMOX) 0.5 % ophthalmic solution [...] 5 minutes apart. 5 mL 1 06/25/19 25 Active benzonatate (TESSALON) 200 mg capsuleIndicatio ns:COVID-19 Take 1 capsule (200 mg total) by mouth 3 (three) times a day as needed for cough keep tessalon out of reach of children, especially children under the age of 10, due to possible serious risk such as if ingested by children under the age of 10. 30 capsule 05/01/19 25 025 Discontin ued(Thera py completed ) amoxicillin 500 mg capsule Take 1 tablet/capsule (500 mg total) by mouth 3 (three) times a day 05/21/19 25 025 Discontin ued(Thera py completed ) Active Problems Problem Noted Date Diagnosed Date Combined forms of age-related cataract of right eye 07/22/2024 Nuclear sclerotic cataract of right eye 06/25/19 25 Annual physical exam 06/11/2024 SOB (shortness of [...] 04/06/2023 Assessment & Plan (04/06/2023 1:31 PM PROCESS CHECKER): Borderline iop OS. Healthy appearing optic nerve [...] provided. Assessment & Plan (04/13/2022 7:47 AM PROCESS CHECKER): Discussed the patient's BMI. The BMI is [...] provided. Assessment & Plan (04/13/2022 7:47 AM PROCESS CHECKER): Discussed the patient's BMI. The BMI is above average. BMI management plan is completed. BMI Follow-up includes: nutrition counseling, exercise counseling and education provided. Nuclear sclerotic cataract of both eyes 03/25/19 Assessment & Plan (04/11/2024 1:39 PM PROCESS CHECKER): Pt ready to pursue surgery. Natural monovision, OD near. Pt prefers this refractive target. Schedule for pre-op with Dr. Johnson or Dr. Mcadams. Assessment & Plan (06/06/2023 2:51 PM CDT): Managed by Dr. Contreras. Pt elects observation. Pt states he will call optometry to schedule if symptoms worsen. Assessment & Plan (04/06/2023 1:30 PM PROCESS CHECKER): Visually significant. Pt elects observation at present. F/u in 1 year with diagnostic refraction and BAT. Assessment & Plan (03/25/2022 4:06 PM PROCESS CHECKER): Surgery not yet indicated. Natural monovision, OD near. Offered SRx but pt declines. Observe. PVD (posterior vitreous detachment), bilateral 0 03/25/2022 Assessment & Plan (04/11/2024 1:40 PM PROCESS CHECKER): Stable. Observe. Assessment & Plan (04/06/2023 1:31 PM PROCESS CHECKER): The signs and symptoms of retinal detachment were reviewed. Advised urgent evaluation with any onset. Assessment & Plan (03/25/2022 4:06 PM PROCESS CHECKER): The signs and symptoms of retinal detachment [...] labs Assessment & Plan (04/13/2022 8:22 AM PROCESS CHECKER): Continue levothyroxine 25 mcg. Continue monitor labs Assessment & Plan (11/22/2021 6:09 PM CDT): Continue levothyroxine. Monitor labs. Assessment & Plan (07/04/2021 8:31 PM CDT): Continue levothyroxine. Monitor labs. Assessment & Plan (01/11/2021 10:12 PM PROCESS CHECKER): Patient still does not want to start [...] needed. Assessment & Plan (04/13/2022 8:21 AM PROCESS CHECKER): Encouraged patient to follow low fat/low chol [...] managed Assessment & Plan (01/11/2021 10:12 PM PROCESS CHECKER): Encouraged patient to follow fat/low chol diet [...] months. Assessment & Plan (04/08/2020 10:59 AM PROCESS CHECKER): Encouraged patient to follow fat/low chol diet [...] CDT): Continue amlodipine 5 mg and olmesartan-HCTZ 20-12.5. Assessment & Plan (12/11/2022 8:34 PM CDT): Bp is stable/in acceptable range for any co-morbidities. Encouraged to limit sodium intake and exercise for weight control. [facility] Assessment & Plan (04/13/2022 8:22 AM PROCESS CHECKER): Bp is stable/in acceptable range for any co-morbidities. Encouraged to limit sodium intake and exercise for weight control. [facility] 07/03/2011 0.5 Assessment & Plan (11/22/2021 6:08 PM CDT): Bp is stable/in acceptable range for any co-morbidities. Encouraged to limit sodium intake and exercise for weight control. [facility]11.5 Assessment & Plan (07/04/2021 8:27 PM CDT): Bp is stable/in acceptable range for any co-morbidities. Encouraged to limit sodium intake and exercise for weight control. [facility] & Plan (01/11/2021 10:12 PM PROCESS CHECKER): Bp is stable/in acceptable range for any co-morbidities. Encouraged to limit sodium intake and exercise for weight control. Continue Tribenzor 03/07/11.5 Assessment & Plan (10/06/2020 11:24 PM CDT): Bp is stable/in acceptable range for any co-morbidities. Encouraged to limit sodium intake and exercise for weight control. Continue Tribenzor 03/07/11.5 Assessment & Plan (06/10/2020 9:43 PM CDT): Bp is stable/in acceptable range for any co-morbidities. Encouraged to limit sodium intake and exercise for weight control. Continue olmesartan, HCTZ and amlodipine. If desires, he may call to transition to generic Tribenzor when his supply is out of the individual components (which would be the 03/07/11. Would then monitor closely as it would [...] weeks. Assessment & Plan (04/08/2020 10:59 AM PROCESS CHECKER): This is a significant, separately identifiable problem [...] resolution/control Assessment & Plan (04/08/2020 11:03 AM PROCESS CHECKER): This is a significant, separately identifiable problem that was evaluated and managed on the same day as the wellness exam Reviewed with patient this appears to be Rosacea-- Will start with metrogel bid and monitor Resolved Problems Problem Noted Date Diagnosed Date Resolved Date Annual physical exam 06/10/2023 024 Assessment & Plan (06/10/2023 7:23 PM [...] agreement with the plan. May use anti-inflammatories [id number] as needed for any discomfort. Advised heat [...] agreement with the plan. May use anti-inflammatories [id number] as needed for any discomfort. Advised heat [...] labs Assessment & Plan (04/13/2022 8:22 AM PROCESS CHECKER): Patient is noting cramps. If he takes magnesium zinc and calcium supplement [id number] it helps them resolve. Not had a magnesium level checked so will do this with his next draw. Also discussed tonic water. Annual physical exam 04/13/2022 023 Assessment & Plan (04/13/2022 8:22 AM PROCESS CHECKER): Encouraged healthy lifestyle, good nutrition and exercise. [...] provided. Assessment & Plan (01/11/2021 11:41 AM PROCESS CHECKER): Obesity is unchanged. Discussed the patient's BMI. [...] provided. Assessment & Plan (01/11/2021 11:41 AM PROCESS CHECKER): Obesity is unchanged. Discussed the patient's BMI. [...] 05/05/19 Assessment & Plan (04/08/2020 10:06 AM PROCESS CHECKER): Weight/BMI is in healthy range. Continue healthy lifestyle to maintain. Annual physical exam 04/08/2020 021 Other fatigue 04/08/2020 05/04/2020 Assessment & Plan (04/08/2020 11:00 AM PROCESS CHECKER): Probably multifactorial. Check labs and followup to re-evaluate Medicare annual wellness visit, initial 04/08/2020 04/08/2020 Assessment & Plan (04/08/2020 10:59 AM PROCESS CHECKER): Encouraged healthy lifestyle, good nutrition and exercise. Encouraged Calcium and Vitamin D and weight bearing exercise for bone health. Reviewed immunizations. Reviewed age appropirate screenings. Medicare Wellness Documentation is completed within the chart Otitis of left ear 04/08/2020 Assessment & Plan (05/04/2020 7:34 PM CDT): Resolved Assessment & Plan (04/08/2020 10:57 AM PROCESS CHECKER): This is a significant, separately identifiable problem [...] 021 Assessment & Plan (04/08/2020 11:04 AM PROCESS CHECKER): Encouraged healthy lifestyle, good nutrition and exercise. Encouraged Calcium and Vitamin D and weight bearing exercise for bone health. Reviewed immunizations Reviewed age appropirate screenings. Will hold off on pneumonia vaccine due to him being in the middle of his COVID series. Immunizations Immunization Administration Dates Next Due Influenza, Quadrivalent, Hig h Dose, Preservative Free, Intrr 12/09/2021,10/31/2019 Influenza, Trivalent, High D ose, Split, Preservative Free, Intramuscular 11/14/2023 Influenza, Unspecified 11/10/2022,12/29/2020 Moderna SARS-CoV-2 Monovalen t Vaccination (12+ YRS) 01/05/2021,05/04/2020,04/02/2020 Pfizer SARS-CoV-2 Monovalent Vaccination (12+ Yrs) PURPLE 11/30/2023,11/10/2022,01/21/2022 Pneumococcal Conjugate PCV 13 06/10/2020 Pneumococcal Polysaccharide PPV23 06/29/2021 ZOSTER Recombinant 01/28/2020,11/29/2019 Social History Tobacco Use Types Packs/Day Years [...] on file Legal Sex Male 11:04 AM PROCESS CHECKER Gender Identity Not on file Sexual Orientation Not on file Last Filed Vital Signs Vital Sign Reading [...] 07/22/2024 7:06 AM CDT Plan of Treatment Not on file Medical Devices Implanted Type Area Regulatory Law Specialist Device Identifier Shelf Expiration Date Model / Serial / Lot [employer] Lens [employer] Eyhance Iol [id number] - [id number] - [id number] Implanted:Qty: 1 on 07/22/2024 by Jordan Mcadams MD at [facility] Lens Right: Eye [employer] [id number] 03/19/2027 [id number] / [id number] / Procedures Procedure Name Priority Date/Time Associated Diagnosis Comments EXTRACTION CATARACT WITH LENS IMPLANT. 07/22/2024 8:22 AM CDT Nuclear sclerotic cataract of right eye Special Needs Bret rivera IOL BIOMETRY - OU - BOTH EYES Routine 06/11/2024 1:00 PM CDT Combined form of age-related cataract, both eyes POC INFLUENZA A/B, COVID-19 ANTIGEN Routine 04/30/2024 11:52 AM CDT COVID-19 PSA SCREEN Routine 04/18/2023 7:02 AM PROCESS CHECKER Prostate cancer screening HM COLONOSCOPY Routine 08/01/2016 from Last 3 Months or Most Recently Relevant to Health Maintenance Results * IOL Biometry - OU - Both Eyes (06/11/2024 1:00 PM CDT) Anatomical Region Laterality Modality Head Ophthalmic Axial Measurements Narrative 06/14/2024 3:56 PM CDT Helpful for surgery planning Jordan Mcadams MD OPHTH ULTRASOUND Final R esult * (ABNORMAL) POC Influenza A/B, COVID-19 antigen (04/30/2024 11:52 AM CDT) Influenza A Ag, POC Negative Negative [facility] Influenza B Ag, POC Negative Negative [facility] COVID-19 Ag POC Positive(A) Presumptive Negative, Invalid [facility] Nasal 04/30/2024 11:5 2 AM CDT Edson Delgadillo NP POINT OF CARE TEST ORDERABLES F inal Result [facility] [address] [place] [address], [facility] * PSA screen (04/18/2023 7:02 AM PROCESS CHECKER) PSA 1.81 < OR = 4.00 ng/mL [facility] Comment: The total PSA value from this assay system is standardized against the WHO standard. The test result will be approximately 20% lower when compared to the equimolar-standardized total PSA (Aniceto [place]). Comparison of serial PSA results should be interpreted with this fact in mind. This test was performed using the Siemens chemiluminescent method. Values obtained from different assay methods cannot be used interchangeably. PSA levels, regardless of value, should not be interpreted as absolute evidence of the presence or absence of disease. Blood 04/18/2023 7:02 AM PROCESS CHECKER 04/18/2023 7:03 AM PROCESS CHECKER Narrative [facility] - 04/19/2023 5:21 AM PROCESS CHECKER FASTING:YES FASTING: YES us Susana DE LEÓN LAB BLOOD ORDERABLES Final Result [facility] [id number] [address] [phone] * (ABNORMAL) COLONOSCOPY (08/01/2016) us Leonardo Carrington MD HEALTH MAINTENANCE Edited Result - Final from Last 3 Months or Most Recently Relevant to Health Maintenance Additional Health Concerns Infection Onset Date Last Indicated COVID: Recovered Comment:Added based on recent COVID infection. 05/10/2024 025 Insurance [employer] PPO [employer] CHOICE PPO Advance Directives For more information, please contact: [phone] Documents on File Type Date Recorded Patient Refrigeration Service Technician Expl anation ADVANCE DIRECTIVE 05/07/2020 4:54 PM POLST Care Teams Animal Chiropractor Relationship Specialty Start Date End Date Susana Krueger PA [address] [place] [address] PCP - General Internal Medicine 03/16/20
--- OUTSIDE RECORDS SUMMARY | 2024-07-23 10:02 | XMS_ITS | Encounter Summary ---
Author Organization [facility] Healthcare Address [address] [place] [address] Care Team Providers Care Magnetic Resonance Imaging Coordinator Name Role Phone Susana Krueger Primary Care Provider [phone] Reason for Visit * Auth/Cert (Routine) Specialty Diagnoses / Procedures Referred By Amee young Referred To Contact Diagnoses Nuclear sclerotic cataract of right eye Nuclear sclerotic cataract of right eye [H25.11] Procedures CA XCAPSL CTRC RMVL INSJ IO LENS PROSTH CPLX WO ECP CA XCAPSL CTRC RMVL INSJ IO LENS PROSTH W/O ECP EXTRACTION CATARACT WITH LENS IMPLANT. Referral ID Status Reason Start Date Expiration Date Visits Re quested Visits Authorized [id number] 1 1 Encounter Details Date Type Department Care Team (Late st Contact Info) Description 07/22/2024 8:45 AM CDT - 07/22/2024 9:30 AM CDT Surgery [facility] Operating Room [address] [place] [id number] Jordan Mcadams MD [id number] [address] EXTRACTION CATARACT WITH LENS IMPLANT. Surgery Details Date/Time Status Location OR Service Patient Class Case Class Case Type Trauma Case? 07/22/2024 8:45 AM Posted [facility] OPERATING ROOM OR 4 Ophthalmology Outpatient Elective Panel 1 Procedure [facility] Anes Op Region Wound Class Comments EXTRACTION CATARACT WITH LENS IMPLANT. 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 4 or more times a week 07/22/2024 6:48 AM CDT Lefever, Sophia, RN Q2: How many drinks containing alcohol do you have on a typical day when you are drinking? 1 or 2 07/22/2024 6:48 AM CDT Sophia Em R N Q3: How often do you have six or more drinks on one occasion? Never 07/22/2024 6:48 AM CDT Sophia Em R N documented as of this encounter Discharge Instructions * Discharge Instructions* Jordan Mcadams MD - 07/22/2024 8:54 AM CDT Images from the original note were not included. Jordan Mcadams MD Cataract Surgery Post-Operative Instructions After Surgery You have a post-operative appointment scheduled this afternoon or tomorrow. No driving, operating machinery, making legal decisions, or drinking alcohol until 24 hours after receiving anesthesia for your surgery. Someone should remain with you as these medications wear off. Rest for the remainder of today. Resume your routine home medications and diet today. Your eyes will remain dilated for up to 72 hours. Your vision will be blurry for the first several days. You will notice that colors are brighter. You may notice a few spots in your vision ???floaters,?? occasional flickers of light, or brief shadows. Eye Drops Please use the following drops 4x daily (breakfast, lunch, dinner, bedtime): - Moxifloxacin (perez cap) - Prednisolone (pink or white cap) - Ketorolac (barbour cap) Shake all the bottles before using the drops. It is normal for the drops to burn for the first few days. Sometimes putting them in the fridge is more soothing. If you have glaucoma, continue using your drops for eye pressure as usual. Activity No eye rubbing. Avoid eye make-up for 1 week. Wear the eye shield whenever sleeping for 1 week. No bending past your waist, strenuous activity, or lifting more than 25 pounds for 1 week. You may shower/bathe but do not let water splash directly on your face for 1 week No swimming, hot tubs, lakes, pools for 2 weeks. Preferably no traveling out of town for 2 weeks in case there is an issue. Glasses The lens in your glasses will now be too strong for your surgical eye, but it will not harm the eye. You can continue to wear your current glasses or you can have the lens on the surgery side removedat an optical. Alternatively, you can rely on your surgical eye and try +2.50 readers/cheaters fromthe drug store for reading. Once your eye(s) is(are) healed one month, we will give you a new glasses prescription. Call the eye clinic if you notice: Decrease in vision - After surgery, your vision should gradually get better over the course of the first 1 week - However, it should not get worse Several floaters all throughout your vision - It is normal to have a cluster of a few floaters that comes in and out of your vision after surgery - However, you should not have several floaters throughout all your vision that are present the entire time Constant flashes of light - An occasional flash of light is common, especially around lights or the sun - Constant flashes of light even in the dark over the course of an hour is not Pain not relieved by lubricating eye drops, Tylenol (acetaminophen), or Advil (ibuprofen) - It is normal to have scratchiness or feel like something is in the eye for a few days - It is not normal to have severe pain, headache, and/or nausea or vomiting Increasing eye redness - Redness should gradually improve after surgery not worsen Surgery Date: 07/22/24 Eye: RIGHT 3 Days Before Surgery 2 Days Before Surgery 1 Day Before Surgery Day of Surgery Moxifloxacin Bfst Keren Din Bed ? Moxifloxacin Bfst Keren Din Bed ? Moxifloxacin Bfst Keren Din Bed ? Moxifloxacin Bf Din Bed ? ?? [facility]Op Drops [facility] Ketorolac Bfst Keren Din Bed ? Ketorolac Bfst Keren Din Bed ? Ketorolac Bf Din Bed ? ?? Day 1 Day 2 Day 3 Day 4 Day 5 Day 6 Day 7 [facility] ? Moxifloxacin Bfst [facility]ren Din Bed ? Moxifloxacin Bfst [facility]ren Din Bed ? [facility] Bed ? [facility] Bed ? Moxifloxacin Bfst Keren Din Bed ? Moxifloxacin Bfst Keren Din Bed ? Ketorolac [facility] Din Bed ? Ketorolac Bfst Keren Din Bed ? Ketorolac Bfst Keren Din Bed ? Ketorolac Bfst Keren Din Bed ? Ketorolac Bfst Keren Din Bed ? Ketorolac Bfst Keren Din Bed ? Ketorolac Bfst Keren Din Bed ? Prednisolone Bfst Keren Din Bed ? Prednisolone Bfst Keren Din Bed ? Prednisolone Bfst Keren Din Bed ? Prednisolone Bfst Keren Din Bed ? Prednisolone Bfst Keren Din Bed ? Prednisolone Bfst Keren Din Bed ? Prednisolone Bfst Keren Din Bed ? Eye Shield at bedtime ? Eye Shield at bedtime ? Eye Shield at bedtime ? Eye Shield at bedtime ? Eye Shield at bedtime ? Eye Shield at bedtime ? Eye Shield at bedtime ? Day 8 Day 9 Day 10 Day 11 Day 12 Day 13 Day 14 Ketorolac Bfst Keren Din Bed ? Ketorolac Bfst Keren Din Bed ? Ketorolac Bfst Keren Din Bed ? Ketorolac Bfst Keren Din Bed ? Ketorolac Bfst Keren Din Bed ? Ketorolac Bfst Keren Din Bed ? Ketorolac Bfst Keren Din Bed ? Prednisolone Bfst Keren Din ??? Prednisolone Bfst Keren Din ??? Prednisolone Bfst Keren Din ??? Prednisolone Bfst Keren Din ??? Prednisolone Bfst Keren Din ??? Prednisolone Bfst Keren Din ??? Prednisolone Bfst Din ??? Day 15 Day 16 Day 17 Day 18 Day 19 Day 20 Day 21 Prednisolone AM, PM ? ? Prednisolone AM, PM ? ? Prednisolone AM, PM ? ? Prednisolone AM, PM ? ? Prednisolone AM, PM ? ? Prednisolone AM, PM ? ? Prednisolone AM, PM ? ? Day 22 Day 23 Day 24 Day 25 Day 26 Day 27 Day 28 Prednisolone AM ? Prednisolone AM ? Prednisolone AM ? Prednisolone AM ? Prednisolone AM ? Prednisolone AM ? Prednisolone AM ? documented in this encounter Medications at Time of Discharge amLODIPine (NORVASC) 5 mg tabletIndications: Essential hypertension TAKE 1 TABLET (5 MG TOTAL) BY MOUTH DAILY. 90 tablet 1 03/25/2024 hydroCHLOROthiazid e 12.5 mg tablet Take 1 tablet (12.5 mg total) by mouth daily 90 tablet 1 06/11/2024 ketorolac (ACULAR) 0.5 % ophthalmic solution Administer 1 drop into the right eye 4 (four) times a day Start 3 days prior to 07-22-24 surgery. 1 drop at breakfast, lunch, dinner, bedtime. Space the separate eye drops out 5 minutes apart. 5 mL 1 06/24/2024 levothyroxine (SYNTHROID) 25 mcg tablet TAKE 1 TABLET BY MOUTH EVERY DAY 100 tablet 05/11/2024 magnesium gluconate 200 mg tabletIndications: hypomagnesemia Take 1 tablet (200 mg total) by mouth 2 (two) times a day moxifloxacin (VIGAMOX) 0.5 % ophthalmic solution Administer 1 drop into the right eye 4 (four) times a day Start 3 days prior to 07-22-24 surgery. 1 drop at breakfast, lunch, dinner, bedtime. Space the separate eye drops out 5 minutes apart. 3 mL 1 06/24/2024 olmesartan (BENICAR) 20 mg tablet TAKE 1 TABLET BY MOUTH EVERY DAY 90 tablet 1 05/03/2024 prednisoLONE acetate (PRED FORTE) 1 % ophthalmic suspension Administer 1 drop into the right eye 4 (four) times a day Start after surgery 1 drop at breakfast, lunch, dinner, bedtime. Space the separate eye drops out by 5 minutes. 10 mL 1 06/24/2024 rosuvastatin (CRESTOR) 10 mg tablet Take 1 tablet (10 mg total) by mouth daily 90 tablet 1 06/11/2024 documented as of this encounter Discharge Disposition Disposition Code Departure Means Destination Comment s Discharge to home or self care documented in this encounter H&P Notes * Jordan Mcadams MD - 07/22/2024 8:17 AM CDT Ophthalmology History and Physical PATIENT: Cody Johnston : 1950 Procedure and Diagnosis: Procedure(s): EXTRACTION CATARACT WITH LENS IMPLANT. Pre-op Diagnosis * Nuclear sclerotic cataract of right eye [H25.11] Subjective Mr. Johnston has a past medical history of Hypertension. he has a past surgical history that includes Angora tooth extraction; Femur fracture surgery (Right); and Colonoscopy. CC: Decreased vision HPI: Patient has a visually significant cataract of the OD eye affecting activities of daily living. Past Medical History: Diagnosis Date Hypertension Past Surgical History: Procedure Laterality Date COLONOSCOPY x2 FEMUR FRACTURE SURGERY Right WISDOM TOOTH EXTRACTION No Known Allergies Medications Prior to Admission Medication Sig Dispense Refill Last Dose/Taking amLODIPine (NORVASC) 5 mg tablet TAKE 1 TABLET (5 MG TOTAL) BY MOUTH DAILY. (Patient taking differently: Take 1 tablet (5 mg total) by mouth every morning) 90 tablet 1 07/21/2024 Morning hydroCHLOROthiazide 12.5 mg tablet Take 1 tablet (12.5 mg total) by mouth daily (Patient taking differently: Take 1 tablet (12.5 mg total) by mouth every morning) 90 tablet 1 07/21/2024 Morning ketorolac (ACULAR) 0.5 % ophthalmic solution Administer 1 drop into the right eye 4 (four) times a day Start 3 days prior to 07-22-24 surgery. 1 drop at breakfast, lunch, dinner, bedtime. Space the separate eye drops out 5 minutes apart. (Patient taking differently: Administer 1 drop into the right eye 4 (four) times a day Start 3 days prior to 07-22-24 surgery. 1 drop at breakfast, lunch, dinner, bedtime. Space the separate eye drops out 5 minutes apart. Future med) 5 mL 1 07/22/2024 levothyroxine (SYNTHROID) 25 mcg tablet TAKE 1 TABLET BY MOUTH EVERY DAY (Patient taking differently: Take 1 tablet (25 mcg total) by mouth every morning) 100 tablet 0 07/21/2024 Bedtime magnesium gluconate 200 mg tablet Take 1 tablet (200 mg total) by mouth 2 (two) times a day 07/21/2024 Morning moxifloxacin (VIGAMOX) 0.5 % ophthalmic solution Administer 1 drop into the right eye 4 (four) times a day Start 3 days prior to 07-22-24 surgery. 1 drop at breakfast, lunch, dinner, bedtime. Space theseparate eye drops out 5 minutes apart. (Patient taking differently: Administer 1 drop into the right eye 4 (four) times a day Start 3 days prior to 07-22-24 surgery. 1 drop at breakfast, lunch, dinner, bedtime. Space the separate eye drops out 5 minutes apart. Future med) 3 mL 1 07/21/2024 Morning olmesartan (BENICAR) 20 mg tablet TAKE 1 TABLET BY MOUTH EVERY DAY (Patient taking differently: Take 1 tablet (20 mg total) by mouth every morning) 90 tablet 1 07/21/2024 Morning prednisoLONE acetate (PRED FORTE) 1 % ophthalmic suspension Administer 1 drop into the right eye 4 (four) times a day Start after surgery 1 drop at breakfast, lunch, dinner, bedtime. Space the separate eye drops out by 5 minutes. (Patient taking differently: Administer 1 drop into the right eye 4 (four) times a day Start after surgery 1 drop at breakfast, lunch, dinner, bedtime. Space the separate eye drops out by 5 minutes. Future med) 10 mL 1 Taking Differently rosuvastatin (CRESTOR) 10 mg tablet Take 1 tablet (10 mg total) by mouth daily (Patient taking differently: Take 1 tablet (10 mg total) by mouth every morning) 90 tablet 1 07/21/2024 Morning Review of Systems Blurriness of vision, all other systems negative Objective Physical exam: HEENT: normocephalic/atraumatic Resp: unlabored Card: regular rate and rhythm Abd: soft Ext: perfused Neuro: AAOx3 Psych: Normal affect Please also refer to the anesthesia note for cardiopulmonary examination. Assessment/Plan The patient has a visually significant cataract in the OD eye. The risks/benefits/alternatives of cataract surgery and anesthesia were discussed with the patient and all questions were answered. Informed consent has been obtained. The patient is suitable for surgery today based on today???s appearan ce and examination. Jordan Mcadams MD documented in this encounter Miscellaneous Notes * Op Note - Jordan Mcadams MD - 07/22/2024 8:30 AM CDT OPERATIVE NOTE PREOPERATIVE DIAGNOSIS: Visually Significant, Combined Forms of Age-Related Cataract, Right Eye. 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 OPERATIONS PERFORMED: 1. Review of intraocular lens calculations, Both Eyes. 2. Phacoemulsification and cataract extraction, Right Eye. 3. Intraocular lens implantation, Right Eye. SURGEON: Jordan Mcadams MD ANESTHESIA: Monitored anesthesia care with topical anesthesia. IMPLANT: +20.0 DIB00 COMPLICATIONS: None. ESTIMATED BLOOD LOSS: Less than 1 mL. INDICATIONS FOR OPERATION: The patient suffers from a visually significant cataract of the right eye. This has caused problems with reading and distance vision, as well as with glare. After discussing options of cataract surgery, including risks and benefits, the patient voiced understanding and elected to proceed today. DESCRIPTION OF OPERATION: The patient was identified in the preoperative holding area, where the right eye was marked. The patient was then brought to the operating room, where a timeout was called, identifying the correct patient, the correct procedure, and the correct operative site. Tetracaine drops were placed into both eyes. The right eye was then prepped and draped in the usual sterile ophthalmic fashion. An eyelid speculum was placed into the operative eye. A paracentesis was made superotemporally with a 1.0mm side-port blade. 1% preservative-free Lidocaine was injected into the anterior chamber. Dispersive viscoelastic was injected to deepen the anterior chamber. Next, a 2.4 mm clear corneal wound was created with a keratome blade temporally. A continuous curvilinear capsulorrhexis was started with a bent cystotome and completed with Utrataforceps. Hydrodissection of the lens nucleus was performed with a cannula and BSS. The lens nucleuswas rotated. Phacoemulsification of the lens was accomplished with combination of divide and conquer and chopping techniques. Remaining residual cortex was carefully removed with irrigation and aspiration. Cohesive viscoelastic was used to inflate the capsular bag. The intraocular lens calculations were reviewedand the correct intraocular lens was selected. The lens was injected into the capsular bag and rotated into place. Viscoelastic was removed with irrigation and aspiration. 0.1 mL of 10mg/mL cefuroxime was injected into the anterior chamber. The anterior chamber was then filled with BSS to physiologic pressure. The wounds were hydrated with BSS. The wounds were then checked and found to be watertight. The eyelid speculum was removed and a dropof tobramycin-dexamethasone was placed into the eye. A shield was placed over the operative eye. The patient was then brought to the recovery room in stable condition after tolerating the procedure well. Jordan Mcadams MD 07/22/2024 * Pre-Procedure Instructions - Dorie Currie NP - 07/09/2024 2:37 PM CDT [facility] Location: [facility] The night before your surgery: * Do not eat anything after midnight the night before your procedure. The morning of your surgery: * You may have clear liquids on your surgery day. You must stop drinking two hours before you arrive to the surgery facility. Acceptable clear liquids include water, clear sports drinks, black coffee, tea, or clear soda. DO NOT drink any milk, creamer, or alcohol. * Your surgeon's office may have provided additional instructions or restrictions. Please follow those instructions. * You may brush your teeth and rinse your mouth out. * Do not glue your dentures. * Do not wear jewelry, body piercings, makeup, hairpins, false eyelashes or contact lenses to the hospital. * Leave any valuables at home or with your family. * If having surgery at [facility], you may want to bring a credit card if you want to use our Mobile Pharmacy for your discharge medications. Mobile pharmacy is not available at [facility], the Orthopedic Center, or the [place] [facility]. Outpatient Surgery: * You must have a responsible adult drive you home and stay with you for 24 hours after your surgery * You cannot be alone at home or in a hotel * Please call your surgeon's office if you do not have someone to drive you home and/or stay with you after surgery * Please bring any items you may need to spend the night in the hospital. Sometimes patients need to be cared for in the hospital overnight. Instructions For Your Medications: Pre-Surgery Instructions: Medication Instructions amLODIPine (NORVASC) 5 mg tablet Take as prescribed hydroCHLOROthiazide 12.5 mg tablet Take as prescribed ketorolac (ACULAR) 0.5 % ophthalmic solution Per surgeon's instructions levothyroxine (SYNTHROID) 25 mcg tablet Take as prescribed magnesium gluconate 200 mg tablet Don't take on day of surgery moxifloxacin (VIGAMOX) 0.5 % ophthalmic solution Per surgeon's instructions olmesartan (BENICAR) 20 mg tablet Take as prescribed prednisoLONE acetate (PRED FORTE) 1 % ophthalmic suspension Per surgeon's instructions rosuvastatin (CRESTOR) 10 mg tablet Take as prescribed General Instructions For Medications: * Stop all of these medications 7 days prior to your surgery: excedrin, motrin, advil, ibuprofen, aleve, naproxen, meloxicam For medications that you are instructed to take on the morning of surgery, take the medications with a few sips of water. Stop all of these medications 7-14 days prior to your surgery: Vitamin E, Herbal medicines, Diet Pills If you have pain, you may take tylenol (acetaminophen). Do not take more than 6 tablets or 3000 mg (3 g) within a 24 period. Call your surgeon and the CPAP clinic if any of the following happens before surgery: Any changes in your health You have a fever You have any signs of an infection (chest, urinary tract or tooth) You have been to the Emergency Room or were in the hospital You have started taking any new medications * Pre-Procedure Instructions - Asia Day RN - 07/05/2024 2:12 PM CDT [facility]) PRE-SURGICAL NURSING INSTRUCTIONS Telephone Assessment These instructions were completed with the patient. General Information Discussed with Patient: Surgery location provided to patient. Arrival time and surgical time will be provided to the patient by their surgeon. You should wear clothing that is clean, loose, comfortable and easy to get in and out of on the dayof surgery. You should remove nail coverings, artificial nails and nail senegalese prior to the day of surgery. This is to lower your risk of infection and to allow the day of surgery team to monitor your oxygen levels. You should leave your valuables and any jewelry at home. No metal or piercings are allowed in the operating room. You should bring your insurance card, a photo ID (example: Export Clerk's License) and a method of payment for any insurance copay, deductible or copay for discharge medications. You should bring a complete, up-to-date, list of all your medications on the day of surgery, including any over the counter medications or supplements you may take. Please note on your medication list, the last date & time you took each medication. The healthcare team, on the day of surgery, will ask for this information. You should bring your Advanced Directive and/or Living Will with you on the day of surgery if you have not verified a copy is already in your Epic Chart. If you are having surgery at [facility], please arrive on the day of surgery with the name and phone number of your local 24 hour pharmacy. Due to evening discharges, your routine pharmacy may be closed. In order to obtain your prescriptions that evening, your surgeon may need to send prescriptions to this pharmacy or have you take prescriptions to this pharmacy when you are discharged. Without this information, you may not be able to obtain your prescriptions that evening. Eye Surgery Process for Patients: 1. Before the surgery, you will be asked to change into a gown. 2. As you get ready for your surgery, your nurse will ask you questions about your medical history and review your medications with you. 3. An IV will be placed so that we may administer medication to keep you comfortable. 4. You will meet your surgical team. 5. You will be taken by stretcher to the operating room for your surgery. 6. After your surgery, you will come to the recovery area. 7. A Fall Risk band will be placed on your arm to remind you that you are at higher risk for falling after having eye surgery. You may remove this band after 24 hours. 8. Before you leave, your discharge team will review your medications with you and any special instructions. A Guide for Patients Having Surgery: Your Pathway to Excellent Care OUR GOAL IS TO PROVIDE YOU WITH EXCELLENT CARE Use this guide to learn about what you can do before, during and after surgery to help your recovery. You are the most important person on your health care team. By becoming informed and involved, you can contribute to the success of your surgery. If your surgeon's directions are different than those in this guide, talk with your nurse or surgeon to confirm the information. It is important that you understand how to take care of yourself at home after surgery. Be sure to bring this guide with you on the day of surgery and take it home with you after surgery. Write down questions for your nurse or surgeon on the last page of this booklet. Important pages to be reviewed BEFORE surgery: Page 1: QR codes for Surgery Center maps Page 3: Types of Anesthesia Page 5: Tips for the day & night before surgery Page 6: When to stop eating BEFORE surgery and examples of clear liquids Page 7-10: Preventing Infection: Chlorhexidine Gluconate (CHG) Bathing Instructions You may access A Guide for Patients Having Surgery: Your Pathway to Excellent Care by the followinglink: [email or web address] How To Prepare Your Skin For Surgery Below is the Pre-Surgical Bathing Protocol you should follow for your surgery. If your surgeon provides you different bathing instructions, please follow your surgeon's orders. Normal Bathing Protocol Bathe with your normal soap the night before and/or the morning of surgery. Wear clean clothes or pajamas to sleep in. After showering DO NOT put on deodorant, hair products, conditioners, lotions, creams, powders, Vaseline or any non-essential products. Remove nail coverings, artificial nails and nail senegalese. Place clean linens on your bed the night before surgery. Shaving: You may shave your face, legs and underarms during your evening shower. Avoid shaving on the day of surgery. If you have questions, please call the CPAP Staff at [phone], Monday-Monday 8am-4:30pm. All patients should read the below section: Information on [facility]: Please view [email or web address] (Patient & Visitor Information) for additional details regarding Advanced Directive forms, AWARE, directions, parking information, lodging, Internet access, dining and more. Information on [facility] or [facility] [place] ([facility]): Please view [email or web address] (Patient and Visitor Information) for parking, directions, lodging and more. For MyChart information, to activate account or password recovery, please go to [email or web address] or call [phone] (toll-free: [phone]), Mon- Monday 8am-5pm. Information for Suicide Prevention: National Suicide Prevention Lifeline (3-298- 346-TALK (1560)) or call or text 185. Chat resources: [employer]. Surgery Times: For patients having surgery @ [facility] or [facility] ([facility]), if your surgeon's office has not notified you of your surgery time by NOON THE BUSINESS DAY BEFORE your surgery, please call your surgeon's office Jordan Mcadams MD . You may also call [phone] and ask for your surgeon's office. For patients having surgery @ [facility], if your surgeon's office has not notified you of your surgery time by 2pm THE BUSINESS DAY BEFORE your surgery, please call your surgeon's office Jordan Mcadams MD . You may also call the surgery center at [phone] and ask for your surgeon's office. For patients having [facility] @ [facility], if your surgeon's office has not notified you of your surgery time by NOON THE BUSINESS DAY BEFORE your surgery, please call the surgery center [phone]. The [facility] Pre[facility] Planning (CPAP) does not provide arrival times for theday of surgery or provide the duration of surgery. This information is provided by your surgeon's office or by the center where you are having surgery. We appreciate your understanding. * Perioperative Nursing Note - Asia Day RN - 07/05/2024 2:11 PM CDT [facility] Perioperative Nursing Note PAP Modalities - [facility]: Telephone Preoperative Evaluation ([facility]) - TELEPHONE ONLY, NO PHYSICAL EXAM Date: 07/05/24 This assessment was completed with the patient. Vitals: 07/05/24 1405 Weight: 88 kg (194 lb) Height: 163.8 cm (5' 4.5) CHEST CIRCUMFERENCE: NA Social History Tobacco Use Smoking Status Never Smokeless Tobacco Never Substance and Sexual Activity Drug Use Never Alcohol Use Q1: How often do you have a drink containing alcohol?: 4 or more times a week Q2: How many drinks containing alcohol do you have on a typical day when you are drinking?: 1 or 2 Q3: How often do you have six or more drinks on one occasion?: Never Outpatient Medications Marked as Taking for the 07/22/24 encounter (Hospital Encounter) Medication Sig Dispense Refill amLODIPine (NORVASC) 5 mg tablet TAKE 1 TABLET (5 MG TOTAL) BY MOUTH DAILY. (Patient taking differently: Take 1 tablet (5 mg total) by mouth every morning) 90 tablet 1 hydroCHLOROthiazide 12.5 mg tablet Take 1 tablet (12.5 mg total) by mouth daily (Patient taking differently: Take 1 tablet (12.5 mg total) by mouth every morning) 90 tablet 1 ketorolac (ACULAR) 0.5 % ophthalmic solution Administer 1 drop into the right eye 4 (four) times a day Start 3 days prior to 07-22-24 surgery. 1 drop at breakfast, lunch, dinner, bedtime. Space the separate eye drops out 5 minutes apart. (Patient taking differently: Administer 1 drop into the right eye 4 (four) times a day Start 3 days prior to 07-22-24 surgery. 1 drop at breakfast, lunch, dinner, bedtime. Space the separate eye drops out 5 minutes apart. Future med) 5 mL 1 levothyroxine (SYNTHROID) 25 mcg tablet TAKE 1 TABLET BY MOUTH EVERY DAY (Patient taking differently: Take 1 tablet (25 mcg total) by mouth every morning) 100 tablet 0 magnesium gluconate 200 mg tablet Take 1 tablet (200 mg total) by mouth 2 (two) times a day moxifloxacin (VIGAMOX) 0.5 % ophthalmic solution Administer 1 drop into the right eye 4 (four) times a day Start 3 days prior to 07-22-24 surgery. 1 drop at breakfast, lunch, dinner, bedtime. Space theseparate eye drops out 5 minutes apart. (Patient taking differently: Administer 1 drop into the right eye 4 (four) times a day Start 3 days prior to 07-22-24 surgery. 1 drop at breakfast, lunch, dinner, bedtime. Space the separate eye drops out 5 minutes apart. Future med) 3 mL 1 olmesartan (BENICAR) 20 mg tablet TAKE 1 TABLET BY MOUTH EVERY DAY (Patient taking differently: Take 1 tablet (20 mg total) by mouth every morning) 90 tablet 1 prednisoLONE acetate (PRED FORTE) 1 % ophthalmic suspension Administer 1 drop into the right eye 4 (four) times a day Start after surgery 1 drop at breakfast, lunch, dinner, bedtime. Space the separate eye drops out by 5 minutes. (Patient taking differently: Administer 1 drop into the right eye 4 (four) times a day Start after surgery 1 drop at breakfast, lunch, dinner, bedtime. Space the separate eye drops out by 5 minutes. Future med) 10 mL 1 rosuvastatin (CRESTOR) 10 mg tablet Take 1 tablet (10 mg total) by mouth daily (Patient taking differently: Take 1 tablet (10 mg total) by mouth every morning) 90 tablet 1 Implants No active implants to display in this view. SKIN Piercings Remaining: No Wound (LDAs) Type of Wound (LDA): (denies) SCREENINGS Tobias index score: 100 Travel/Exposure Screening: Travel Screening Have you traveled outside the [place] in the last 6 months?: Yes Were you hospitalized in any country besides [place] in last 6 months?: No Have you traveled outside of the [place] 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 Communication Needs: None Assistive Devices/DME: None Hearing - Right Ear: Functional Hearing - Left Ear: Functional Discharge Planning Type of Residence: Private residence Living Arrangements: Spouse/significant other Support Systems: Spouse/significant other, Family members, Friends/neighbors Assistance Needed: his will be with him on DOS Patient expects to be discharged to: Private residence STAFF FORESTER NO documented in this encounter Plan of Treatment Not on file documented as of this encounter Procedures Procedure Name Priority Date/Time Associated Diagnosis Comments EXTRACTION CATARACT WITH LENS IMPLANT. 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 (BSS) intraocular solution As needed, Starting on Mon07/22/24 at 0828, Intra-Op Given 07/22/2024 8:28 AM CDT 15 mL BSS Plus-lidocaine 0.375%-EPINEPHrine 0.25 mg (Bret Casillas) preservative free ophthalmic solution (total volume 1 mL) 1 mL, intracameral RIGHT, Once, On Mon07/22/24 at 0830, For 1 dose, Intra-Op, Have available in the OR for surgeon administration in the right eye. Given 07/22/2024 8:28 AM CDT 0.5 mL Carrier Fluids for Secondary Infusion - 0.9% Sodium Chloride 30 mL, intravenous, As needed, For priming tubing and/or flushing, Starting on Mon07/22/24 at 0635, Pre-Op, 0-250 ml/hr to flush line after IV infusions when no maintenance IV ordered. Infuse 30mL at the same rate as the secondary infusion. Run as primary IV, not intended for KVO. cefuroxime (ZINACEF) 20 mg/2 mL in sodium chloride 0.9% intracameral (premix) 20 mg 20 mg (2 mL), intracameral RIGHT, Once, On Mon07/22/24 at 0830, For 1 dose, Intra-Op, Have available in the OR for surgeon administration in the right eye. Given 07/22/2024 8:28 AM CDT 0.2 mL DILATING COCKTAIL OPHTHALMIC GEL ophthalmic solution - ADS Override Pull Starting on Mon07/22/24 at 0634, For 1 dose, Created by cabinet override Ingredients per 0.3 mL Lidocaine 2% jelly 0.214 mL Phenylephrine 10% ophth drops 0.021 mL Cyclopentolate 1% ophth drops 0.021 mL Tropicamide 1% ophth drops 0.021 mL Ketorolac 0.5% ophth drops 0.021 mL dilating cocktail ophthalmic solution 0.3 mL 0.3 mL, right eye, Every 15 min, First dose on Mon07/22/24 at 0715, For 2 doses, Pre-Op, Ingredients per 0.3 mL Lidocaine 2% jelly 0.214 mL Phenylephrine 10% ophth drops 0.021 mL Cyclopentolate 1% ophth drops 0.021 mL Tropicamide 1% ophth drops 0.021 mL Ketorolac 0.5% ophth drops 0.021 mL, Indications: Mydriasis During Ocular SurgeryIndications:Mydriasis During Ocular Surgery Given 07/22/2024 7:11 AM CDT 0.3 mL Given 07/22/2024 6:56 AM CDT 0.3 mL EPINEPHrine 0.3 mg in balanced salt soln no.2 irrig. (BSS) 500 mL irrigation solution As needed, Starting on Mon07/22/24 at 0828, Intra-Op Given 07/22/2024 8:28 AM CDT 500 mL Rig ht Eye povidone-iodine (BETADINE PREP) 5 % ophthalmic solution As needed, Starting on Mon07/22/24 at 0828, Intra-Op Given 07/22/2024 8:28 AM CDT 30 mL sodium chloride 0.9% flush 0.5-20 mL 0.5-20 mL, intra-catheter, Every 8 hours scheduled, First dose on Mon07/22/24 at 0715, Pre-Op, Flush volume based on line type and size. Given 07/22/2024 8:26 AM CDT 10 mL sodium chloride 0.9% flush 0.5-20 mL 0.5-20 mL, intra-catheter, Every 8 hours scheduled (alternate), First dose on Mon07/22/24 at 0800, Pre-Op, Flush volume based on line type and size. sodium chloride 0.9% flush 0.5-20 mL 0.5-20 mL, intra-catheter, As needed, line care, Starting on Mon07/22/24 at 0635, Pre-Op, Flush volume based on line type and size. Flush before and after each use. Given 07/22/2024 7:10 AM CDT 10 mL tetracaine (PF) (ALTACAINE) 0.5 % ophthalmic solution As needed, Starting on Mon07/22/24 at 0828, Intra-Op, Indications: Administration of Corneal AnesthesiaIndications:Administration of Corneal Anesthesia Given 07/22/2024 8:28 AM CDT 2 drops tobramycin-dexAMETHasone (TOBRADEX) 0.3-0.1 % ophthalmic suspension As needed, Starting on Mon07/22/24 at 0828, Intra-Op Given 07/22/2024 8:28 AM CDT 2 drops documented in this encounter Discontinued Medications Medication Sig Discontinue Reason Start Date End Da te amoxicillin 500 mg capsule Take 1 tablet/capsule (500 mg total) by mouth 3 (three) times a day Therapy completed 05/20/2024 07/05/2024 benzonatate (TESSALON) 200 mg capsuleIndications:COV ID-19 Take 1 capsule (200 mg total) by mouth 3 (three) times a day as needed for cough keep tessalon out of reach of children, especially children under the age of 10, due to possible serious risk such as if ingested by children under the age of 10. Therapy completed 04/30/2024 07/05/2024 documented as of this encounter Active and Recently Administered Medications Times are shown in CDT. Scheduled Medication Order 07/20/2024 07/21/2024 07/22/2024 BSS Plus-lidocaine 0.375%-EPINEPHrine 0.25 mg (Bret Casillas) preservative free ophthalmic solution (total volume 1 mL) (COMPLETED) 1 mL, intracameral RIGHT, Once, On Mon07/22/24 at 0830, For 1 dose, Intra-Op, Have available in the OR for surgeon administration in the right eye. 827 (Given - Provid er: Jordan Mcadams MD)30 (Due) cefuroxime (ZINACEF) 20 mg/2 mL in sodium chloride 0.9% intracameral (premix) 20 mg (COMPLETED) 20 mg (2 mL), intracameral RIGHT, Once, On Mon07/22/24 at 0830, For 1 dose, Intra-Op, Have available in the OR for surgeon administration in the right eye. 827 (Given - Provid er: Jordan Mcadams MD)0830 (Due) dilating cocktail ophthalmic solution 0.3 mL (COMPLETED) 0.3 mL, right eye, Every 15 min, First dose on Mon07/22/24 at 0715, For 2 doses, Pre-Op, Ingredients per 0.3 mL Lidocaine 2% jelly 0.214 mL Phenylephrine 10% ophth drops 0.021 mL Cyclopentolate 1% ophth drops 0.021 mL Tropicamide 1% ophth drops 0.021 mL Ketorolac 0.5% ophth drops 0.021 mL, Indications: Mydriasis During Ocular Surgery 0656 (Given - Provid er: Sophia Em, ANUJA)0711 (Given - Provider: Sophia Em RN) sodium chloride 0.9% flush 0.5-20 mL 0.5-20 mL, intra-catheter, Every 8 hours scheduled, First dose on Mon07/22/24 at 0715, Pre-Op, Flush volume based on line type and size. 0715 (Due)0826 (Give n - Provider: Mandy Rucker CRNA) sodium chloride 0.9% flush 0.5-20 mL 0.5-20 mL, intra-catheter, Every 8 hours scheduled (alternate), First dose on Mon07/22/24 at 0800, Pre-Op, Flush volume based on line type and size. 0800 (Due) PRN Medication Order 07/20/2024 07/21/2024 07/22/2024 balanced salt soln no.2 irrig. (BSS) intraocular solution (CANCELED) As needed, Starting on Mon07/22/24 at 0828, Intra-Op 0828 (Given - Provid er: Jordan Mcadams MD) Carrier Fluids for Secondary Infusion - 0.9% Sodium Chloride 30 mL, intravenous, As needed, For priming tubing and/or flushing, Starting on Mon07/22/24 at 0635, Pre-Op, 0-250 ml/hr to flush line after IV infusions when no maintenance IV ordered. Infuse 30mL at the same rate as the secondary infusion. Run as primary IV, not intended for KVO. EPINEPHrine 0.3 mg in balanced salt soln no.2 irrig. (BSS) 500 mL irrigation solution (CANCELED) As needed, Starting on Mon07/22/24 at 0828, Intra-Op 0828 (Given - Provid er: Jordan Mcadams MD) lidocaine (PF) (XYLOCAINE) 10 mg/mL (1 %) preservative free injection 2-10 mg 2-10 mg (0.2-1 mL), other, Once as needed, pain with IV placement, Starting on Mon07/22/24 at 0635, For 1 dose, Pre-Op, Administer volume needed to infiltrate IV site. naloxone (NARCAN) 0.4 mg/mL injection 0.04-0.4 mg 0.04-0.4 mg, intravenous, Once as needed, other, excessive sedation/respiratory depression, Starting on Mon07/22/24 at 0848, For 1 dose, Phase I, Dilute 0.4 mg with 9 mL NS (final concentration 0.04 mg/mL). For respiratory depression (respiratory rate less than 6), administer 0.4 mg IVP over 30 seconds. For excessive sedation administer 0.04 mg (1 mL) every 1 minute until desired level of alertness. For IV, administer over 30 seconds., Indications: Opioid Toxicity ondansetron (ZOFRAN) injection 4 mg 4 mg, intravenous, Administer over 2 Minutes, Once as needed, nausea, vomiting, Starting on Mon07/22/24 at 0848, For 1 dose, Phase I, Proceed to prochlorperazine if ondansetron has been given within the last 6 hours. povidone-iodine (BETADINE PREP) 5 % ophthalmic solution (CANCELED) As needed, Starting on Mon07/22/24 at 0828, Intra-Op 08 (Given - Provid er: Jordan Mcadams MD) prochlorperazine (COMPAZINE) injection 5 mg 5 mg, intravenous, Administer over 2 Minutes, Once as needed, nausea, vomiting, Starting on Mon07/22/24 at 0848, For 1 dose, Phase I, If nausea/vomiting not relieved by ondansetron within 30 minutes or if ondansetron has been given within the last 6 hours. sodium chloride 0.9% flush 0.5-20 mL 0.5-20 mL, intra-catheter, As needed, line care, Starting on Mon07/22/24 at 0635, Pre-Op, Flush volume based on line type and size. Flush before and after each use. sodium chloride 0.9% flush 0.5-20 mL 0.5-20 mL, intra-catheter, As needed, line care, Starting on Mon07/22/24 at 0635, Pre-Op, Flush volume based on line type and size. Flush before and after each use. 0710 (Given - Provid er: Sophia Em RN) tetracaine (PF) (ALTACAINE) 0.5 % ophthalmic solution (CANCELED) As needed, Starting on Mon07/22/24 at 0828, Intra-Op, Indications: Administration of Corneal Anesthesia 08 (Given - Provid er: Jordan Mcadams MD) tobramycin-dexAMETHasone (TOBRADEX) 0.3-0.1 % ophthalmic suspension (CANCELED) As needed, Starting on Mon07/22/24 at 0828, Intra-Op 0828 (Given - Provid er: Jordan Mcadams MD) documented in this encounter Orders Medications Ordered That Reji ht Not Have Been Administered Count Last Ordered Date First Ordered Date Carrier Fluids for Secondary Infusion - 0.9% Sodium Chloride 1 07/22/2024 lidocaine (PF) (XYLOCAINE) 1 0 mg/mL (1 %) preservative free injection 2-10 mg 1 07/22/2024 naloxone (NARCAN) 0.4 mg/mL injection 0.04-0.4 mg 1 07/22/2024 ondansetron (ZOFRAN) injection 4 mg 1 07/22 prochlorperazine (COMPAZINE) injection 5 mg 1 07/22/2024 sodium chloride 0.9% flush 0.5-20 mL 3 10/2024 Diet Count Last Ordered Date First Orde red Date ADULT DISCHARGE DIET 1 07/22/2024 Nursing Count Last Ordered Date First Orde red Date DISCHARGE ACTIVITY 3 07/22/2024 DISCHARGE CALL PROVIDER 2 07/22/2024 OTHER FOLLOW UP 1 07/22/2024 documented in this encounter Additional Health Concerns Infection Onset Date Last Indicated Resolved Time COVID: Recovered Comment:Added based on recent COVID infection. 05/10/2024 06/11/2024 documented as of this encounter Care Teams Magnetic Resonance Imaging Coordinator Relationship Specialty Start Date End Date Susana Krueger PA [address] [place] [address] PCP - General Internal Medicine 03/16/20 documented as of this encounter
--- OUTSIDE RECORDS SUMMARY | 2024-07-23 10:02 | XMS_ITS | Encounter Summary ---
Author Organization [facility] Healthcare Address [address] [place] [address] Care Team Providers Care Motivational Speaker Name Role Phone Susana Krueger Primary Care Provider [phone] Reason for Visit * Auth/Cert (Routine) Specialty Diagnoses / Procedures Referred By Amee lee Referred To Contact Diagnoses Nuclear sclerotic cataract of right eye Nuclear sclerotic cataract of right eye [H25.11] Procedures TX XCAPSL CTRC RMVL INSJ IO LENS PROSTH CPLX WO ECP TX XCAPSL CTRC RMVL INSJ IO LENS PROSTH W/O ECP EXTRACTION CATARACT WITH LENS IMPLANT. Referral ID Status Reason Start Date Expiration Date Visits Re quested Visits Authorized [id number] 1 1 Encounter Details Date Type Department Care Team (Latest Contact Info) Description 07/22/2024 6:31 AM CDT - 07/22/2024 9:16 AM CDT Hospital Encounter [facility] Operating Room [address] [place] [id number] Jordan Mcadams MD [address] [facility] [address] [place] [address] Combined forms of age-related cataract of right eye [H25.811] (Primary Dx) Discharge Disposition: Discharge to home or self care Social History Tobacco Use Types Packs/Day Years [...] on file 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 [facility]loxacin [facility] ? Moxifloxacin [facility] ? Moxifloxacin [facility] Din Bed ? ?? Pre-Op Drops Ketorolac [facility] Din Bed ? Ketorolac [facility] Din Bed ? Ketorolac [facility] Din Bed ? Ketorolac Bf Din Bed ? ?? Day 1 Day 2 Day 3 Day 4 Day 5 Day 6 Day 7 Moxifloxacin [facility] Din Bed ? Moxifloxacin [facility] Din Bed ? Moxifloxacin [facility] Din Bed ? Moxifloxacin [facility] Din Bed ? Moxifloxacin [facility] Din Bed ? Moxifloxacin [facility] Din Bed [facility] Moxifloxacin [facility] Din Bed ? Ketorolac [facility] Din Bed ? Ketorolac [facility] Din Bed ? Ketorolac [facility] Din Bed ? Ketorolac [facility] Din Bed ? Ket[facility]olac [facility] Din Bed ? Ketorolac [facility] Din Bed ? Ketorolac [facility] Din Bed ? Prednisolone Bfst Keren Din Bed ? Prednisolone Bfst Keren Din Bed ? Prednisolone Bfst Keren Din Bed ? Prednisolone Bfst Din Bed ? Prednisolone Bfst Din Bed ? Prednisolone Bfst Din Bed ? Prednisolone Bfst Keren Din [...] Bfst Keren Din Bed ? Ketorolac Bfst Din Bed ? Ketorolac Bfst Din Bed ? Ketorolac Bfst Din Bed ? Ketorolac Bfst Din Bed ? Ketorolac Bfst Din Bed ? Ketorolac Bfst Din Bed ? Prednisolone Bfst Keren Din [...] a day Start 3 days prior to 6-9-25 surgery. 1 drop at breakfast, lunch, dinner, [...] has a past surgical history that includes [place] tooth extraction; Femur fracture surgery (Right); and [...] Preoperative Assessment and Planning CPAP Clinic Location: [facility] The night before your surgery: * Do [...] your family. * If having surgery at [facility], you may want to bring a credit card if you want to use our Mobile Pharmacy for your discharge medications. Mobile pharmacy is not available at [facility], the [facility], or the [place] for [facility]. Outpatient Surgery: * You must have a [...] remove nail coverings, artificial nails and nail egyptian prior to the day of surgery. This is to lower your risk of infection and to allow the day of surgery team to monitor your oxygen levels. You should leave your valuables and any jewelry at home. No metal or piercings are allowed in the operating room. You should bring your insurance card, a photo ID (example: Supervisor [employer]'s License) and a method of payment for [...] Chart. If you are having surgery at [facility], please arrive on the day of surgery [...] Pathway to Excellent Care by the followinglink: [email or web address] How To Prepare Your Skin For Surgery [...] Remove nail coverings, artificial nails and nail egyptian. Place clean linens on your bed the night before surgery. Shaving: You may shave your face, legs and underarms during your evening shower. Avoid shaving on the day of surgery. If you have questions, please call the CPAP Staff at [phone], Monday-Monday 8am-4:30pm. All patients should read the below section: Information on [facility] & the [facility]: Please view [email or web address] (Patient & Visitor Information) for additional details regarding Advanced Directive forms, AWARE, directions, parking information, lodging, Internet access, dining and more. Information on [facility] or [facility] Surgery [place] ([facility]): Please view [email or web address] (Patient and Visitor Information) for parking, directions, lodging and more. For MyChart information, to activate account or password recovery, please go to [email or web address] or call [phone] (toll-free: [phone]), Mon- Monday 8am-5pm. Information for Suicide Prevention: National Suicide Prevention Lifeline (0-774- 833-QNHF (9073)) or call or text 872. Chat resources: [employer]. Surgery Times: For patients having surgery @ [facility] for [facility] or [facility] Surgery [place] ([facility]), if your surgeon's office has not notified you of your surgery time by NOON THE BUSINESS DAY BEFORE your surgery, please call your surgeon's office Jordan Mcadams MD . You may also call [phone] and ask for your surgeon's office. For patients having surgery @ [facility], if your surgeon's office has not notified you of your surgery time by 2pm THE BUSINESS DAY BEFORE your surgery, please call your surgeon's office Jordan Mcadams MD . You may also call the surgery center at [phone] and ask for your surgeon's office. For patients having surgery @ [facility], if your surgeon's office has not notified you of your surgery time by NOON THE BUSINESS DAY BEFORE your surgery, please call the surgery center [phone]. The Center for Preoperative Assessment & Planning ([facility]) does not provide arrival times for theday of surgery or provide the duration of surgery. This information is provided by your surgeon's office or by the center where you are having surgery. We appreciate your understanding. 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 Needs Communication Needs: None Assistive Devices/DME: None Hearing - Right Ear: Functional Hearing - Left Ear: Functional Discharge Planning Type of Residence: Private residence Living Arrangements: Spouse/significant other Support Systems: Spouse/significant other, Family members, Friends/neighbors Assistance Needed: his will be with him on DOS Patient expects to be discharged to: Private residence 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 Plan of [...] forms of age-related cataract of right eye documented in this encounter Admitting Diagnoses Diagnosis Nuclear sclerotic cataract of right eye Senile nuclear sclerosis documented in this encounter Administered Medications Inactive Administered Medications - up to 3 most recent administrations Medication Order MAR Action Action Date Dose Rate Site Carrier Fluids for Secondary Infusion - 0.9% Sodium Chloride 30 mL, intravenous, As needed, For priming tubing and/or flushing, Starting on Mon07/22/24 at 0635, Pre-Op, 0-250 ml/hr to flush line after IV infusions when no maintenance IV ordered. Infuse 30mL at the same rate as the secondary infusion. Run as primary IV, not intended for KVO. DILATING COCKTAIL OPHTHALMIC GEL ophthalmic solution - [...] Given 07/22/2024 6:56 AM CDT 0.3 mL sodium chloride 0.9% flush 0.5-20 mL [...] Given 07/22/2024 7:10 AM CDT 10 mL documented in this encounter Discontinued Medications Medication [...] for surgeon administration in the right eye. 0828 (Given - Provid er: Jordan Mcadams MD)0830 (Due) cefuroxime (ZINACEF) 20 mg/2 mL in sodium chloride 0.9% intracameral (premix) 20 mg (COMPLETED) 20 mg (2 mL), intracameral RIGHT, Once, On Mon07/22/24 at 0830, For 1 dose, Intra-Op, Have available in the OR for surgeon administration in the right eye. 0828 (Given - Provid er: Jordan Mcadams MD)0830 [...] Surgery 0656 (Given - Provid er: Sophia Em RN)0711 (Given - Provider: Sophia Em RN) sodium [...] 0828, Intra-Op, Indications: Administration of Corneal Anesthesia 0828 (Given - Provid er: Jordan Mcadams MD) tobramycin-dexAMETHasone (TOBRADEX) 0.3-0.1 % ophthalmic suspension (CANCELED) As needed, Starting on Mon07/22/24 at 0828, Intra-Op 0828 (Given - Provid er: Jordan Mcadams MD) documented in this encounter Orders Medications Ordered That Reji ht Not Have Been Administered Count Last Ordered Date First Ordered Date balanced salt soln no.2 irri g. (BSS) intraocular solution 1 07/22/2024 BSS Plus-lidocaine 0.375%-EP INEPHrine 0.25 mg (Bret Casillas) preservative free ophthalmic solution (total volume 1 mL) 1 07/22/2024 Carrier Fluids for Secondary Infusion - 0.9% Sodium Chloride 1 07/22/2024 cefuroxime (ZINACEF) 20 mg/2 mL in sodium chloride 0.9% intracameral (premix) 20 mg 1 07/22/2024 EPINEPHrine 0.3 mg in balanc ed salt soln no.2 irrig. (BSS) 500 mL irrigation solution 1 07/22/2024 lidocaine (PF) (XYLOCAINE) 1 0 mg/mL (1 %) preservative free injection 2-10 mg 1 07/22/2024 naloxone (NARCAN) 0.4 mg/mL injection 0.04-0.4 mg 1 07/22/2024 ondansetron (ZOFRAN) injection 4 mg 1 07/22 povidone-iodine (BETADINE TX EP) 5 % ophthalmic solution 1 07/22/2024 prochlorperazine (COMPAZINE) injection 5 mg 1 07/22/2024 sodium chloride 0.9% flush 0.5-20 mL 3 10/2024 tetracaine (PF) (ALTACAINE) 0.5 % ophthalmic solution 1 07/22/2024 tobramycin-dexAMETHasone (TO BRADEX) 0.3-0.1 % ophthalmic suspension 1 07/22/2024 Diet Count Last Ordered Date First Orde [...] documented as of this encounter Care Teams Motivational Speaker Relationship Specialty Start Date End Date Susana Krueger PA [address] [facility] [address] [place] [address] PCP - General Internal Medicine 03/16/20 documented as of this encounter
== END 2024-07-23 09:25 | disposition home or self-care (01) ==
PROVIDERS: PCP Physician Assistant; Visit Provider Physician Assistant
DX: R06.02 Shortness of breath (principal)
CPT/HCPCS: 93306